=== PATIENT | male | born 1960 | race Caucasian/White ===

== ENCOUNTER → 2017-09-18 16:49 | Outpatient (CLI) | payer OTHER, SELFPAY ==
[2017-09-18 16:55] LABS: Bacteria 0 SEEN /hpf (None Seen); Mucous, Urine 0 SEEN /hpf (<or=2+); Red Blood Cells-Urine 0 SEEN /hpf (0-5); Squamous Epithelial Cells - UA 0 SEEN /hpf (0-5)
[2017-09-18 17:56] LABS: Color, Urine Yellow (Yellow); Glucose, Dipstick Normal (Normal); Ketone-Dipstick Negative (Negative); Leukocyte Esterase-Dipstick Negative /ul (Negative); Nitrite-Dipstick Negative (Negative); Occult Blood-Urine Negative /ul (Negative); Protein-Dipstick Negative (Negative); Urine Bilirubin Dipstick Negative (Negative); Urine Clarity Clear (Clear); Urine Urobilinogen Normal (Normal)
[2017-09-18 18:08] LABS: White Blood Cells 0-5 SEEN /hpf (0-5)
[2017-09-18 18:24] LABS: ALB/GLOB Ratio 1.1 RATIO (0.9-2.4); AST(SGOT) 26 U/L (15-37); Alanine Aminotransfer ALT/SGPT 36 U/L (16-61); Albumin, Serum 3.9 g/dL (3.2-5.0); Alkaline Phosphatase 94 U/L (45-117); Anion Gap 7 (5-15); BUN 20 mg/dL (7-18); BUN/Creat Ratio 15.6 RATIO (10-20); Calcium,Total 8.9 mg/dL (8.5-10.1); Chloride 109 mmol/L (98-107); Cholesterol 118 mg/dL (200); Creatinine, Serum 1.28 mg/dL (0.70-1.30); EST Glomerular Filtration Rate 62 mL/min (>60); Est Glom Filt Rate - Afr Amer 75 mL/min (>60); Globulin 3.5 g/dL (2.2-4.2); Glucose 87 mg/dL (74-106); High Density Lipoprotein 38 mg/dL; Potassium 4.3 mmol/L (3.5-5.1); Protein, Total 7.4 g/dL (6.4-8.2); Sodium Level 143 mmol/L (136-145); Thyroid Stim Hormone (TSH) 1.04 uIU/mL (0.358-3.74); Triglycerides 138 mg/dL; Uric Acid 8.5 mg/dL (3.5-7.2); Very Low Density Lipoprotein 28 mg/dL (5-40)
[2017-09-18 18:25] LABS: Absolute Lymphocyte Count 1.72 X10^3/ul (0.83-4.51); Absolute Neutrophil Count 6.8 X10^3/uL (2.0-7.7); Basophil# 0.06 X10^3/uL; Basophil% 0.6 % (0-1); Eosinophil# 0.15 X10^3/uL; Eosinophils% 1.5 % (0-5); Hematocrit 39.2 % (40-54); Hemoglobin 13.1 g/dl (13.0-16.5); Lymphocyte # 1.72 X10^3/ul (4.0); Lymphocyte % 17.8 % (19-41); Mean Corp Hgb Conc 33.4 g/gl (32-36); Mean Corpuscular Hgb 30.1 pg (27.0-32.0); Mean Corpuscular Volume 90.1 fL (80-94); Mean Platelet Vol. 12.1 fl (6.2-12.0); Monocyte# 0.98 X10^3/uL; Monocyte% 10.1 % (0-10); Neutrophil # 6.75 X10^3/uL (2.7-7.7); Neutrophil % 69.7 % (47-70); Platelet Count 174 K/mm3 (150-450); RBC Distribution Width CV 13.4 % (11.6-14.6); RBC Distribution Width SD 43.3 fl (35.1-43.9); Red Blood Count 4.35 M/mm3 (4.6-6.2); White Blood Count 9.7 K/mm3 (4.4-11.0)
[2017-09-18 18:35] LABS: POSITIVE COUNT NO; POSITIVE DIFFERENTIAL NO; POSITIVE MORPHOLOGY NO
== END ==
PROVIDERS: Family Provider Family Medicine; PCP Family Medicine; Visit Provider Family Medicine
DX: I10 Essential (primary) hypertension (principal); E78.5 Hyperlipidemia, unspecified; M10.9 Gout, unspecified
CPT/HCPCS: 36415; 80053; 80061; 81001; 83735; 84443; 84550; 85025

== ENCOUNTER → 2017-10-02 09:39 | Outpatient (CLI) | payer OTHER, SELFPAY ==
--- NOTE | 2017-10-02 09:41 | CDU_ITS ---
Reason For Study: Carotid stenosis Rt. Velocities/BP Lt. Velocities/BP Prox CCA 104.0/17.6 cm/sec. Prox CCA 96.2/17.0 cm/sec. Mid CCA 93.2/17.6 cm/sec. Mid CCA 98.5/19.3 cm/sec. Dist CCA 91.5/14.7 cm/sec. Dist CCA 75.0/19.3 cm/sec. Prox ICA 63.5/14.0 cm/sec. Prox ICA 41.4/11.4 cm/sec. Mid ICA 49.9/16.3 cm/sec. Mid ICA 65.2/15.9 cm/sec. Dist ICA 70.9/18.1 cm/sec. Dist ICA 77.8/19.8 cm/sec. Rt. ICA/CCA = .76. Lt. ICA/CCA = .79. Prox ECA 122.0/14.7 cm/sec. Prox ECA 132.0/21.2 cm/sec. Rt. Vert. 35.4/6.7 cm/sec. Lt. Vert. 42.0/9.8 cm/sec. Right Extracranial There is homogeneous, smooth atherosclerotic plaque noted in the right common carotid artery. There is intimal thickening but no significant atherosclerotic plaque noted in the right internal carotid artery. There is heterogeneous, smooth atherosclerotic plaque noted in the right external carotid artery. Antegrade flow is noted in the right vertebral artery. Left Extracranial There is homogeneous, smooth atherosclerotic plaque noted in the left common carotid artery. There is intimal thickening but no significant atherosclerotic plaque noted in the left internal carotid artery. There is intimal thickening but no significant atherosclerotic plaque noted in the left external carotid artery. Antegrade flow is noted in the left vertebral artery. Procedure Carotid Duplex [id number]. Exam performed in department. Interpretation Summary No significant atherosclerotic plaque or stenosis noted in the internal carotid arteries bilaterally. Flow within the vertebral arteries is antegrade bilaterally. Ordering Physician: Priyank Azul Referring Physician: Priyank Azul Performed By: Bonnie Hannah RVT
== END ==
PROVIDERS: Family Provider Family Medicine; PCP Family Medicine; Visit Provider Family Medicine
DX: I65.23 Occlusion and stenosis of bilateral carotid arteries (principal)
CPT/HCPCS: 93880

== ENCOUNTER → 2017-10-09 16:28 | Outpatient (CLI) | payer OTHER, SELFPAY ==
--- NOTE | 2017-10-09 16:31 | RAD_ITS ---
STUDY: X-RAY - LEFT KNEE REASON FOR EXAM: Male, 57 years old. Bilateral knee pain TECHNIQUE: 3 weight bearing view(s) of the knee. COMPARISON: None. FINDINGS: Normal visualized distal femur. Normal visualized proximal tibia and fibula. Normal proximal tibiofibular articulation. Mild spurring of tibial spine and femoral notch. There is mild to moderate degenerative arthrosis of the medial femorotibial compartment with moderate joint space narrowing. Normal lateral femorotibial compartment. There is mild to moderate degenerative arthrosis of the patellofemoral articulation. There is no demonstrated joint effusion, the suprapatella joint space however is indistinct and slightly hazy.. The soft tissue structures are unremarkable. RAD/Knee 3 Views IMPRESSION: Moderate degenerative changes involving the medial femoral tibial and patellofemoral compartment. No overt effusion seen, there is however fat infiltration in the suprapatellar joint space which may be indirect sign of small effusion. Electronically Signed: Dayami Sears MD at 7:17 EDT , Service support ,
--- NOTE | 2017-10-09 16:31 | RAD_ITS ---
STUDY: X-RAY - RIGHT KNEE REASON FOR EXAM: Male, 57 years old. Bilateral knee pain TECHNIQUE: 3 weight bearing view(s) of the knee. COMPARISON: None. FINDINGS: Normal visualized distal femur. Normal visualized proximal tibia and fibula. Normal proximal tibiofibular articulation. Mild spurring involving the femoral notch and tibial spine. There is moderate degenerative arthrosis of the medial femorotibial compartment with moderate joint space narrowing. Normal lateral femorotibial compartment. There is moderate degenerative arthrosis of the patellofemoral articulation. There is no demonstrated joint effusion. The soft tissue structures are unremarkable. 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 No effusion. Electronically Signed: Dayami Sears MD at 7:14 EDT , Service support ,
== END ==
LOC: MTRAD 16:30
PROVIDERS: Family Provider Family Medicine; PCP Family Medicine; Visit Provider Family Medicine
DX: M25.561 Pain in right knee (principal); M25.562 Pain in left knee
CPT/HCPCS: 73562

== ENCOUNTER → 2017-10-12 16:59 | Outpatient (CLI) | payer OTHER, SELFPAY ==
[2017-10-12 19:12] LABS: 24 Hour Urine Protein 212.8 mg/24HR (<150 MG/24HR); 24HR. UA Prot. Total Volume 1600 mL; 24HR. Urine Creatinine 2.62 g/24 HR (0.90-2.10); Urine Protein (24 Hour) 13.3 mg/dL (<11.9)
[2017-10-14 05:07] LABS: Uric Acid, Ur 34.4 mg/dL (Not Estab.)
[2017-10-14 10:26] LABS: Uric Acid, 24Ur 550.4 mg/24 hr (250.0-750.0)
== END ==
PROVIDERS: Family Provider Family Medicine; PCP Family Medicine; Visit Provider Family Medicine
DX: M10.9 Gout, unspecified (principal)
CPT/HCPCS: 81050; 82570; 84156; 84560

== ENCOUNTER → 2017-12-10 13:43 | Outpatient (CLI) | payer OTHER, SELFPAY ==
--- NOTE | 2017-12-10 13:44 | ECHOD_ITS ---
Reason For Study: Aortic valve replacement Procedure This was a 2D Doppler, Color Flow transthoracic echocardiogram. The exam was of fair technical quality due to body habitus. The study was technically difficult. Exam performed in department. Left Ventricle Normal LV size. Left ventricular systolic function is normal. The estimated ejection fraction is 60 %. There is evidence of diastolic dysfunction. No regional wall motion abnormalities noted. Right Ventricle Normal RV size. Normal systolic function. Atria The left atrium is mildly enlarged. Normal right atrium. No doppler evidence for ASD. Mitral Valve There is no mitral annular calcification. Normal mitral valve. Trivial mitral valve insufficiency. Tricuspid Valve Normal tricuspid valve. Mild tricuspid valve insufficiency. Right ventricular systolic pressure estimated to be 51 mmHg. Aortic Valve Stable appearing bioprosthetic aortic valve apparatus. Pulmonic Valve The pulmonic valve is not well visualized. Great Vessels Normal sized aortic root. Pericardium/Pleural No pericardial effusion. MMode/2D Measurements & Calculations LVIDd: 4.2 cm IVSd: 1.3 cm LVOT diam: 2.2 cm LVIDs: 2.7 cm LVPWd: 1.3 cm LVOT area: 3.7 cm2 FS: 35.9 % Ao root diam: 3.5 cm LAV(MOD-bp): 59.8 ml LA A4 area: 21.6 cm2 LA dimension: 4.3 cm LAV(MOD-bp) Indexed: 23.5 ml/m2 LAV(MOD-sp2): 59.2 ml LAV(MOD-sp4): 55.8 ml RA A4 area: 19.1 cm2 Doppler Measurements & Calculations MV E max gaurav: 114.9 cm/sec Lat Peak E' Gaurav: 11.1 cm/sec Med Peak E' Gaurav: 6.5 cm/sec MV A max gaurav: 105.0 cm/sec E/E' lat: 10.4 E/E' med: 17.6 MV E/A: 1.1 Ao V2 max: 264.5 cm/sec LV V1 max: 147.8 cm/sec SV(LVOT): 118.8 ml Ao max P.0 mmHg LV V1 max P.7 mmHg Ao V2 mean: 169.9 cm/sec LV V1 mean P.6 mmHg Ao mean P.4 mmHg LV V1 mean: 100.7 cm/sec Ao V2 VTI: 51.2 cm LV V1 VTI: 32.1 cm HUBERT(I,D): 2.3 cm2 HUBERT(V,D): 2.1 cm2 PA V2 max: 234.4 cm/sec TR max gaurav: 341.4 cm/sec PA V2 mean: 148.9 cm/sec TR max P.6 mmHg PA V2 VTI: 49.4 cm Interpretation Summary The study was technically difficult. Left ventricular systolic function is normal. The estimated ejection fraction is 60 %. The left atrium is mildly enlarged. Trivial mitral valve insufficiency. Mild tricuspid valve insufficiency. Stable appearing bioprosthetic aortic valve apparatus. Right ventricular systolic pressure estimated to be 51 mmHg. There is evidence of diastolic dysfunction. Ordering Physician: Ras Meadows Referring Physician: Priyank Azul Performed By: Lexie Doe RDCS
== END ==
LOC: CVS 13:43
PROVIDERS: Family Provider Family Medicine; PCP Family Medicine; Visit Provider Internal Medicine Cardiovascular Disease
DX: Z95.3 Presence of xenogenic heart valve (principal)
CPT/HCPCS: 93306

== ENCOUNTER → 2017-12-30 13:24 | Outpatient (CLI) | payer OTHER, SELFPAY ==
--- NOTE | 2017-12-30 13:26 | CT_ITS ---
STUDY: CT CHEST WITH CONTRAST REASON FOR EXAM: Male, 57 years old. Status post thoracic aortic aneurysm repair, follow-up RADIATION DOSAGE (If Supplied By Facility): CTDIvol = ( 13.93 ) mGy, DLP = ( 750.74 ) mGycm TECHNIQUE: Transaxial imaging was performed following intravenous administration of 100 ml of Isovue 300 contrast material. Multiplanar coronal and sagittal images were reformatted. Individualized dose optimization techniques were used for this CT. COMPARISON: None. FINDINGS: The lungs are normal. There is no demonstrated pleural abnormality. Normal heart and pericardium. Sternotomy wires are noted. There is prosthetic aortic valve. Normal mediastinum. Normal hilar regions. Normal enhanced pulmonary arteries. Therer operative changes the ascending thoracic aorta. The thoracic aorta is normal in caliber without evidence of aneurysm or dissection. There are multi-level degenerative changes of the thoracic spine. There is no demonstrated abnormality of the visualized upper abdomen. CT/Chest WITH Contrast IMPRESSION: 1. No thoracic aortic aneurysm or dissection. Operative changes, as above. Electronically Signed: Galo Reyes MD at 19:35 EDT , Service support ,
== END ==
PROVIDERS: Family Provider Family Medicine; PCP Family Medicine; Visit Provider Internal Medicine Cardiovascular Disease
DX: I71.2 Thoracic aortic aneurysm, without rupture (principal); I10 Essential (primary) hypertension; I27.21 Secondary pulmonary arterial hypertension; Z95.3 Presence of xenogenic heart valve
CPT/HCPCS: 71260; Q9967; A4216

== ENCOUNTER → 2018-02-08 16:14 | Outpatient (CLI) | payer OTHER, SELFPAY ==
[2018-02-08 17:53] LABS: Absolute Lymphocyte Count 1.59 X10^3/ul (0.83-4.51); Absolute Neutrophil Count 6.4 X10^3/uL (2.0-7.7); Basophil# 0.06 X10^3/uL; Basophil% 0.7 % (0-1); Eosinophil# 0.17 X10^3/uL; Eosinophils% 1.9 % (0-5); Hematocrit 38.2 % (40-54); Hemoglobin 12.5 g/dl (13.0-16.5); Lymphocyte # 1.59 X10^3/ul (4.0); Lymphocyte % 17.7 % (19-41); Mean Corp Hgb Conc 32.7 g/gl (32-36); Mean Corpuscular Hgb 29.6 pg (27.0-32.0); Mean Corpuscular Volume 90.3 fL (80-94); Mean Platelet Vol. 11.8 fl (6.2-12.0); Monocyte# 0.74 X10^3/uL; Monocyte% 8.2 % (0-10); Neutrophil # 6.38 X10^3/uL (2.7-7.7); Neutrophil % 71.2 % (47-70); Platelet Count 160 K/mm3 (150-450); RBC Distribution Width CV 13.6 % (11.6-14.6); RBC Distribution Width SD 44.4 fl (35.1-43.9); Red Blood Count 4.23 M/mm3 (4.6-6.2)
[2018-02-08 17:54] LABS: POSITIVE DIFFERENTIAL NO
[2018-02-08 17:55] LABS: POSITIVE COUNT NO; POSITIVE MORPHOLOGY NO
[2018-02-08 18:05] LABS: AST(SGOT) 25 U/L (15-37); Alanine Aminotransfer ALT/SGPT 38 U/L (16-61); Albumin, Serum 3.7 g/dL (3.2-5.0); Alkaline Phosphatase 101 U/L (45-117); BUN 20 mg/dL (7-18); BUN/Creat Ratio 16.7 RATIO (10-20); Calcium,Total 8.9 mg/dL (8.5-10.1); Chloride 108 mmol/L (98-107); Cholesterol 139 mg/dL (200); EST Glomerular Filtration Rate 66 mL/min (>60); Est Glom Filt Rate - Afr Amer 80 mL/min (>60); Globulin 3.6 g/dL (2.2-4.2); Glucose 80 mg/dL (74-106); Potassium 4.2 mmol/L (3.5-5.1); Protein, Total 7.3 g/dL (6.4-8.2); Sodium Level 140 mmol/L (136-145); Triglycerides 146 mg/dL; Uric Acid 8.3 mg/dL (3.5-7.2)
[2018-02-08 18:06] LABS: Anion Gap 9 (5-15); High Density Lipoprotein 40 mg/dL; Very Low Density Lipoprotein 29 mg/dL (5-40)
[2018-02-09 09:11] LABS: Vitamin B12 452 pg/mL (211-911)
[2018-02-09 09:32] LABS: Ferritin 102 ng/mL (26-388); Iron 84 ug/dL (65-175); Iron Binding Capacity,Total 281 ug/dL (250-450); PERCENT IRON SATURATION 29.9 % (15.0-55.0)
== END ==
LOC: LAB 16:14 → MFPLAB 16:21
PROVIDERS: Family Provider Family Medicine; PCP Family Medicine; Visit Provider Family Medicine
DX: I10 Essential (primary) hypertension (principal); D64.9 Anemia, unspecified; M10.9 Gout, unspecified
CPT/HCPCS: 36415; 80053; 80061; 82607; 82728; 82746; 83540; 83550; 84550; 85025

== ENCOUNTER 2018-03-18 10:35 | Day surgery (SDC) | payer OTHER, SELFPAY ==
--- NOTE | 2018-03-18 | IMM_PTH ---
PATIENT: ROSAS HAGEN LOC: EN U#:[id number] AGE/SX: 57/M ROOM: RE03/18/[address]: Dr. Dmitri Baltazar MD : 1960 BED: DIS: 03/18/2018 SPEC #: [id number] RECD: 03/19/18 10:42 STATUS: KAREN REQ #: [id number] MARIE: 03/18/18 00:[address]: Dmitri Baltazar DEPT: IMMUNOHISTOCHEMISTRY RECD BY: Eleanor Thomas ENTERED: 03/19/18 10:43 SP TYPE: IMMUNO OTHR DR: Dr. Priyank Azul MD Tissues: Stomach, NOS Procedures: H Pylori (initial) PHYSICIAN & INSTITUTION [place] [id number] SPECIMEN INFORMATION: Tissue Source: Antrum biopsy Clinical Info: Anemia Specimen Number: [id number] CPT code: 55688 METHODOLOGY: Deparaffinized sections of prefer/formalin-fixed tissue or PAP/DQ stained slides are incubated with monoclonal/polyclonal antibodies/oligonucleotide probes. Localization is made via biotin free immunoperoxidase method. Appropriate controls are performed and reacted as expected. Results on target cell population are indicated in the following table: RESULTS: ANTIBODY / CLONE RESULT H Pylori (polyclonal) positive These tests were developed and their performance characteristics determined by [facility]. They may not have been cleared or approved by the [place]. Food and Drug Administration. The FDA has determined that such clearance or approval is not necessary. INTERPRETATION: Antrum, biopsy: Positive for numerous Helicobacter pylori organisms. SJ:jaswant 03/22/18
--- NOTE | 2018-03-18 | GASB_PTH ---
PATIENT: ROSAS HAGEN LOC: EN U#:[id number] AGE/SX: 57/M ROOM: RE03/18/[address]: Dr. Dmitri Baltazar MD : 1960 BED: DIS: 03/18/2018 SPEC #: [id number] RECD: 03/18/18 14:39 STATUS: KAREN REMadan #: [id number] MARIE: 03/18/18 00:[address]: Dmitri Baltazar DEPT: SURGICAL PATHOLOGY RECD BY: Gabo Isidro ENTERED: 03/18/18 14:39 SP TYPE: Gastric Bx OTHR DR: Dr. Priyank Azul MD Tissues: Gastric mucous membrane Procedures: Surgery Specimen Level IV HEADER OPERATION: Colonoscopy, EGD ([facility]) PRE-OP DIAGNOSIS: Anemia TISSUE SUBMITTED: Antrum biopsy for H. pylori and path MICROSCOPIC DIAGNOSIS Antrum biopsy: Chronic active gastritis. SJ:jaswant 10/26/18 COMMENT The results of immunohistochemistry for Helicobacter pylori will be reported separately ([id number]). MICROSCOPIC DESCRIPTION Slides are reviewed. GROSS DESCRIPTION Received in fixative is one container labeled with the patient's name and designated antral biopsy for H. pylori. The specimen consists of one irregular fragment of light diaz soft tissue that measures 0.4 x 0.4 x 0.1 cm. The specimen is totally submitted in one cassette. / SJ:rg 03/18/18 TC:2 CPT: 09167
[2018-03-18 10:59] VITALS: BP 149/58; PULSE 37; RESP 16; TEMP 37.1; O2SAT 98; BMI 42.3
[2018-03-18 12:25] VITALS: BP 149/58; BP 95/55; PULSE 65; RESP 16; TEMP 36.6; O2SAT 95
[2018-03-18 12:30] VITALS: BP 104/60; BP 149/58; PULSE 71; RESP 16; O2SAT 96
--- NOTE | 2018-03-18 12:30 | OP.ENDO_ITS ---
Patient Name: Yeison Zavala Procedure Date: 03/18/2018 11:53 AM Date of : 1960 Age: 57 Procedure: Upper GI endoscopy Indications: Iron deficiency anemia Providers: Dmitri Baltazar MD Referring MD: Dmitri Baltazar MD Medicines: See the Anesthesia note for documentation of the administered medications Complications: No immediate complications. Procedure: Pre-Anesthesia Assessment: - Prior to the procedure, a History and Physical was performed, and patient medications and allergies were reviewed. The patient's tolerance of previous anesthesia was also reviewed. The risks and benefits of the procedure and the sedation options and risks were discussed with the patient. All questions were answered, and informed consent was obtained. Prior Anticoagulants: The patient has taken no previous anticoagulant or antiplatelet agents. ASA Grade Assessment: III - A patient with severe systemic disease. After reviewing the risks and benefits, the patient was deemed in satisfactory condition to undergo the procedure. After obtaining informed consent, the endoscope was passed under direct vision. Throughout the procedure, the patient's blood pressure, pulse, and oxygen saturations were monitored continuously. The gastroscope was introduced through the mouth, and advanced to the second part of duodenum. The upper GI endoscopy was accomplished without difficulty. The patient tolerated the procedure well. Scope In: 12:05:46 PM Scope Out: 12:09:36 PM Total Procedure Duration Time 0 hours 3 minutes 50 seconds Findings: A small hiatal hernia was present. The Z-line was regular and was found 45 cm from the incisors. Diffuse moderate inflammation characterized by erosions was found in the gastric antrum. Biopsies were taken with a cold forceps for histology. This might explain chronic blood loss although there was not evidence for bleeding at the time of the exam. The examined duodenum was normal. Impression: - Small hiatal hernia. - Z-line regular, 45 cm from the incisors. - Gastritis. Biopsied. - Normal examined duodenum. Recommendation: - Discharge patient to home. - Resume previous diet. - Telephone my office for pathology results in 1 week. - Continue present medications. Procedure Code(s): --- Professional --- 95531, Esophagogastroduodenoscopy, flexible, transoral; with biopsy, single or multiple Diagnosis Code(s): --- Professional --- K44.9, Diaphragmatic hernia without obstruction or gangrene K29.70, Gastritis, unspecified, without bleeding D50.9, Iron deficiency anemia, unspecified CPT copyright 2017 [employer]. All rights reserved. The codes documented in this report are preliminary and upon medical coder review may be revised to meet current compliance requirements. Dmitri Baltazar MD 03/18/2018 12:29:53 PM This report has been signed electronically. Number of Addenda: 0 Note Initiated On: 03/18/2018 11:53 AM
--- NOTE | 2018-03-18 12:33 | OP.ENDO_ITS ---
Patient Name: Yeison Zavala Procedure Date: 03/18/2018 12:11 PM Date of : 1960 Age: 57 Procedure: Colonoscopy Indications: Iron deficiency anemia Providers: Dmitri Baltazar MD Referring MD: Dmitri Baltazar MD Medicines: See the Anesthesia note for documentation of the administered medications Patient Profile: Last Colonoscopy: none. The patient's first colonoscopy is today. Complications: No immediate complications. Procedure: Pre-Anesthesia Assessment: - Prior to the procedure, a History and Physical was performed, and patient medications and allergies were reviewed. The patient's tolerance of previous anesthesia was also reviewed. The risks and benefits of the procedure and the sedation options and risks were discussed with the patient. All questions were answered, and informed consent was obtained. Prior Anticoagulants: The patient has taken no previous anticoagulant or antiplatelet agents. ASA Grade Assessment: III - A patient with severe systemic disease. After reviewing the risks and benefits, the patient was deemed in satisfactory condition to undergo the procedure. After I obtained informed consent, the scope was passed under direct vision. Throughout the procedure, the patient's blood pressure, pulse, and oxygen saturations were monitored continuously. The colonoscope was introduced through the anus and advanced to the cecum, identified by appendiceal orifice and ileocecal valve. The colonoscopy was performed without difficulty. The patient tolerated the procedure well. The quality of the bowel preparation was good. The ileocecal valve was photographed. Scope In: 12:12:30 PM Scope Withdrawal Time 0 hours 6 minutes 26 seconds Scope Out: 12:21:58 PM Total Procedure Duration Time 0 hours 9 minutes 28 seconds Findings: The digital rectal exam findings include internal hemorrhoids that prolapse with straining, but spontaneously regress to the resting position (Grade II). Pertinent negatives include normal prostate (size, shape, and consistency). A few diverticula were found in the sigmoid colon. The exam was otherwise without abnormality. Impression: - Internal hemorrhoids that prolapse with straining, but spontaneously regress to the resting position (Grade II) found on digital rectal exam. - Diverticulosis in the sigmoid colon. - The examination was otherwise normal. - No specimens collected. Recommendation: - Discharge patient to home. - Resume previous diet. - Continue present medications. - Repeat colonoscopy in 5 years for screening purposes. Procedure Code(s): --- Professional --- 22268, Colonoscopy, flexible; diagnostic, including collection of specimen(s) by brushing or washing, when performed (separate procedure) Diagnosis Code(s): --- Professional --- K64.1, Second degree hemorrhoids D50.9, Iron deficiency anemia, unspecified K57.30, Diverticulosis of large intestine without perforation or abscess without bleeding CPT copyright 2017 [employer]. All rights reserved. The codes documented in this report are preliminary and upon certified professional coder review may be revised to meet current compliance requirements. Dmitri Baltazar MD 03/18/2018 12:32:37 PM This report has been signed electronically. Number of Addenda: 0 Note Initiated On: 03/18/2018 12:11 PM
[2018-03-18 12:35] VITALS: BP 114/66; BP 149/58; PULSE 70; RESP 16; O2SAT 97
[2018-03-18 12:40] VITALS: BP 107/69; BP 149/58; PULSE 71; RESP 16; O2SAT 98
[2018-03-18 12:55] VITALS: BP 149/58
== END 2018-03-18 13:05 | disposition home or self-care (01) ==
LOC: EN 10:35 → AC 10:36
PROVIDERS: Family Provider Family Medicine; PCP Family Medicine; Referring Provider Surgery; Visit Provider Surgery
PROC: 0DJD8ZZ Inspection of Lower Intestinal Tract, Via Natural or Artificial Opening Endoscopic (ICD-10-PCS; CPT 45378; principal; 2018-03-18 11:40)
DX: K29.50 Unspecified chronic gastritis without bleeding (principal); D50.9 Iron deficiency anemia, unspecified; K64.0 First degree hemorrhoids; K57.30 Diverticulosis of large intestine without perforation or abscess without bleeding; K44.9 Diaphragmatic hernia without obstruction or gangrene; M10.9 Gout, unspecified; E78.5 Hyperlipidemia, unspecified; I10 Essential (primary) hypertension; M19.90 Unspecified osteoarthritis, unspecified site; J44.9 Chronic obstructive pulmonary disease, unspecified; Z95.4 Presence of other heart-valve replacement; E66.01 Morbid (severe) obesity due to excess calories; Z68.41 Body mass index [BMI] 40.0-44.9, adult; Z87.891 Personal history of nicotine dependence; Z80.0 Family history of malignant neoplasm of digestive organs; Z79.82 Long term (current) use of aspirin; Z79.899 Other long term (current) drug therapy
CPT/HCPCS: 43239; 45378; 88305; 88342; J7120

== ENCOUNTER → 2018-05-08 07:57 | Outpatient (CLI) | payer OTHER, SELFPAY ==
[2018-05-08 10:34] LABS: Ferritin 96 ng/mL (26-388); Iron Binding Capacity,Total 282 ug/dL (250-450)
[2018-05-10 10:13] LABS: Vitamin B12 524 pg/mL (211-911)
--- OUTSIDE RECORDS SUMMARY | 2018-08-11 08:31 | XMS RPT_ITS ---
:1960 Author Organization OHIP Support Name Relationship Address Phone [place] HAGEN Unavailable [address] + [place] [address] [employer] Unavailable [address] + [facility] [place] [place] [address] [place], [place] Unavailable [address] + [place] [address] [employer] Unavailable [address] + [facility] [place] [place] [address] [place], [place] Unavailable [address] + [place] [address] [employer] Unavailable [address] + [place] [address] [place], [place] Unavailable [address] + [place] [address] [employer] Unavailable [address] + [facility] [place] [place] [address] [place], [place] Unavailable [address] + [place] [address] [employer] Unavailable [address] + [facility] [place] [place] [address] [place], [place]available [address] + [place] [address] [employer] Unavailable [address] + [place] [address] [place], [place] Unavailable [address] + [place] [address] [employer] Unavailable [address] + [place] [address] [place], [place] Unavailable [address] + [place] [address] [employer] Unavailable [address] + [place] [address] [place], [place] Unavailable [address] + [place] [address] [employer] Unavailable [address] + [place], [place] [id number] [place] [address] + [place] [address] [employer] Unavailable [address] + [address] Unavailable [address] + [place] [address] [employer] Unavailable [address] + [place] [address] [place], [place] Unavailable [address] + [place] [address] [employer] Unavailable [address] + [address] Unavailable [address] + [place], [place] [address] [employer] Unavailable [address] + [address] Unavailable [address] + [place] [address] [employer] Unavailable [address] + [place] [address] [employer] Unavailable [address] + [place] [address] Care Team Providers Name Role Phone Priyank Azul Attending Unavailable Priyank Azul Referring Unavailable Priyank Azul Primary Care Unavailable Priyank Azul Attending Unavailable Priyank Azul Primary Care Unavailable Priyank Azul Attending Unavailable Priyank Azul Primary Care Unavailable Priyank Azul Attending Unavailable Priyank Azul Referring Unavailable Priyank Azul Primary Care Unavailable Priyank Azul Attending Unavailable Priyank Azul Referring Unavailable Priyank Azul Primary Care Unavailable Priyank Azul Attending Unavailable Priyank Azul Primary Care Unavailable Cuca Mcfadden Attending Unavailable [place] Attending Unavailable Priyank Azul Referring Unavailable Priyank Azul Primary Care Unavailable [place] Attending Unavailable [place] Referring Unavailable Priyank Azul Primary Care Unavailable Abdiel, Ras Attending Unavailable [place] Referring Unavailable Priyank Azul Primary Care Unavailable Abdiel, Ras Attending Unavailable Abdiel, Ras Referring Unavailable ThonginPriyank doe Attending Unavailable SchinPriyank doe Referring Unavailable Priyank Azul Primary Care Unavailable Cebunora, Dmitri Attending Unavailable SchinPriyank doe Referring Unavailable Cebul, Dmirti Attending Unavailable SchinPriyank doe Primary Care Unavailable Cebul, Dmitri Referring Unavailable Cebul, Dmitri Attending Unavailable PROBLEMS PROBLEMS DATE TYPE CONDITION / CODE ATTENDING STATUS SOURCE 04/01/2018 Unknown D50.9 - Iron Cebul, Dmitri Active [facility] deficiency anemia, Community unspecified / Hospital D50.9(ICD-10) Repository 04/01/2018 Unknown K57.30 - Cebul, Dmitri Active [facility] Diverticulosis of [facility] large intestine Hospital without perforation Repository or abscess without bleeding / K57.30(ICD-10) 04/01/2018 Unknown K64.1 - Second Cebul, Dmitri Active [facility] degree hemorrhoids / Community K64.1(ICD-10) Hospital Repository 04/01/2018 Unknown K44.9 - Cebul, Dmitri Active [facility] Diaphragmatic hernia Community without obstruction Hospital or gangrene / Repository K44.9(ICD-10) 04/01/2018 Unknown K29.70 - Gastritis, Cebul, Dmitri Active [facility] unspecified, without Community bleeding / Hospital K29.70(ICD-10) Repository 02/22/2018 Unknown D64.9 - Anemia, Cebul, Dmitri Active [facility] unspecified / Community D64.9(ICD-10) Hospital Repository 02/08/2018 Unknown M10.9 - Gout, Schinner, Priyank Active [facility] unspecified / E Community M10.9(ICD-10) Hospital Repository 02/08/2018 Unknown I10 - Essential Schinner, Priyank Active [facility] (primary) E Community hypertension / Hospital I10(ICD-10) Repository 02/08/2018 Unknown 401.9 - Unspecified Schinner, Priyank Active [facility] essential E Community hypertension / Hospital 401.9(ICD-9) Repository 02/08/2018 Unknown 274.9 - Gout, Schinner, Priyank Active [facility] unspecified / E Community 274.9(ICD-9) Hospital Repository 11/26/2017 Unknown I71.2 - Thoracic [place] aortic aneurysm, Community without rupture / Hospital I71.2(ICD-10) Repository 11/26/2017 Unknown I35.0 - Nonrheumatic [place] aortic (valve) Community stenosis / Hospital I35.0(ICD-10) Repository 11/26/2017 Unknown Z95.3 - Presence of [place] xenogenic heart Community valve / Hospital Z95.3(ICD-10) Repository 10/09/2017 Unknown M25.561 [facility] M25.561(ICD-10) Hospital Repository 10/09/2017 Unknown M25.562 [facility] E [facility] M25.562(ICD-10) Hospital Repository 10/02/2017 Unknown I65.23 - Occlusion Priyank Azul and stenosis of E Community bilateral carotid Hospital arteries / Repository I65.23(ICD-10) 10/02/2017 Unknown R07.9 - Chest pain, Priyank Azul unspecified / E Community R07.9(ICD-10) Hospital Repository PROCEDURES PROCEDURES No Procedure Records FoundRESULTS RESULTS COMPREHENSIVE METABOLIC Collected: 06/02/2018 Status: F Source: [place] 4:03 PM [facility] REPOSITORY TYPE CODE TESTS RESULT OUT OF RANGE REFERENCE UNITS LAB L501.0100 74-106 mg/dL Normal GLU 83 Result Comment: Please note revised GLUCOSE reference range effective 2017. LAB L501.1000 7-18 mg/dL Normal BUN 18 LAB L501.1100 0.70-1.30 mg/dL Normal CREAT,SERUM 1.19 Result Comment: The validity of the calculated GFR AND GFRAA in patients over 70 years has not been determined. Clinical correlation is essential. LAB L501.1110 >60 mL/min Normal EST GFR 67 Result Comment: Non- GFR Calc LAB L501.1115 >60 mL/min Normal EST GFR - AA 81 Result Comment: GFR Calc LAB L501.1300 10-20 RATIO Normal BUN/CRE 15.1 LAB L501.1500 6.4-8.2 g/dL T Normal PROT 7.5 LAB L501.1800 3.2-5.0 g/dL Normal ALB 4.1 LAB L501.1950 2.2-4.2 g/dL Normal GLOB 3.4 LAB L501.2000 0.9-2.4 RATIO Normal A/G 1.2 LAB L501.2200 8.5-10.1 mg/dL CA Normal 9.3 LAB L501.4100 15-37 U/L Normal AST 18 LAB L501.4305 45-117 U/L Normal ALK P 106 LAB L501.4405 16-61 U/L Normal ALT 37 LAB L501.4600 0.20-1.00 mg/dL T Normal BILI 0.30 LAB L501.5300 136-145 mmol/L NA Normal 144 LAB L501.5600 3.5-5.1 mmol/L K Normal 4.1 LAB L501.5900 98-107 mmol/L CL Normal 106 LAB L501.6100 21.0-32.0 mmol/L Normal CO2 28.0 LAB L501.6200 5-15 Normal GAP 10 Performed By: #### L500.4050, L500.4100, L501.1400 #### [facility] [address] [place], [place], [address] LIPID PROFILE Collected: 06/02/2018 Status: F Source: [place] 4:03 PM [facility] REPOSITORY TYPE CODE TESTS RESULT OUT OF RANGE REFERENCE UNITS LAB L501.4900 200 mg/dL Normal CHOL 142 Result Comment: <200 mg/dL Desirable 200-240 mg/dL Borderline >240 mg/dL High Risk LAB L501.5000 mg/dL Normal TRIG 147 Result Comment: The drugs N-Acetylcysteine and Metamizole may falsely depress this assay. Serum Triglycerides Reference Interval Normal <150 mg/dL Borderline high 150 - 199 mg/dL High 200 - 499 mg/dL Very High > or = 500 mg/dL LAB L501.6400 mg/dL Normal HDL 43 Result Comment: The drugs N-Acetylcysteine and Metamizole may falsely depress this assay. Reference Range HDL <40 mg/dL Low HDL Cholesterol HDL >or= 60 mg/dL High HDL Cholesterol LAB L501.6500 0-130 mg/dL Normal LDL 70 LAB L501.6600 5-40 mg/dL Normal VLDL 29 Performed By: #### L500.4050, L500.4100, L501.1400 #### [facility] [address] [facility] [place], [place], [address] URIC ACID Collected: 06/02/2018 Status: F Source: [place] 4:03 PM [facility] REPOSITORY TYPE CODE TESTS RESULT OUT OF RANGE REFERENCE UNITS LAB L501.1400 3.5-7.2 mg/dL High URIC 8.9 Result Comment: The drugs N-Acetylcysteine and Metamizole may falsely depress this assay. Performed By: #### L500.4050, L500.4100, L501.1400 #### [facility] [address] [place], [place], [address] CBC W/DIFF, AUTOMATED Collected: 06/02/2018 Status: F Source: [place] 4:03 [facility] REPOSITORY TYPE CODE TESTS RESULT OUT OF RANGE REFERENCE UNITS LAB L100.1000 4.4-11.0 K/mm3 Normal WBC 10.0 LAB L100.1200 4.6-6.2 M/mm3 Normal RBC 4.63 LAB L100.1300 13.0-16.5 g/dl Normal HGB 13.7 LAB L100.1400 40-54 % Normal HCT 42.3 LAB L100.1500 80-94 fL Normal MCV 91.4 LAB L100.1600 27.0-32.0 pg Normal MCH 29.6 LAB L100.1700 32-36 g/gl Normal MCHC 32.4 LAB L100.1810 11.6-14.6 % Normal RDW CV 14.2 LAB L100.1820 35.1-43.9 fl High RDW SD 46.8 LAB L100.1900 150-450 K/mm3 Normal PLT 184 LAB L100.2000 6.2-12.0 fl Normal MPV 11.6 LAB L100.2100 47-70 % Normal NEUT% 68.4 LAB L100.2200 19-41 % Normal LY% 21.6 LAB L100.2300 0-10 % Normal MONO% 6.6 LAB L100.2400 0-5 % Normal EO% 1.9 LAB L100.2500 0-1 % Normal BASO% 0.8 LAB L100.2550 0.0-0.9 % Normal IM GRAN % 0.700 Result Comment: IG% - Immature Granulocytes (promyelocytes, myelocytes and metamyelocytes) > 1% indicates that a LEFT SHIFT is Present. LAB L100.2620 2.0-7.7 X10 3/uL Normal Absolute Neut 6.9 LAB L100.2720 0.83-4.51 X10 3/ul Normal Absolute Lymph 2.16 Performed By: #### L100.0100 #### [facility] [address] [place], [address] IRON BINDING Collected: 05/08/2018 Status: F Source: [place] 8:01 AM [facility] REPOSITORY Order Comment: Order Date: 02/09/18 Order Info: 2499-7 - TIBC Order Info: 2275-08 - [place] Order Info: 228-8 - FOLS Is Patient Taking Vitamins or Folic Acid Supplements? N TYPE CODE TESTS RESULT OUT OF RANGE REFERENCE UNITS LAB L503.6075 250-450 ug/dL Normal TIBC 282 Performed By: #### L503.6075 #### [facility] [address] [place], [address] FERRITIN Collected: 05/08/2018 Status: F Source: [place] 8:01 AM [facility] REPOSITORY Order Comment: Order Date: 02/09/18 Order Info: 2499-7 - TIBC Order Info: 2275-08 - [place] Order Info: 228-8 - FOLS Is Patient Taking Vitamins or Folic Acid Supplements? N TYPE CODE TESTS RESULT OUT OF RANGE REFERENCE UNITS LAB L503.6550 26-388 ng/mL Normal FERRITIN 96 Performed By: #### L503.6550 #### [facility] [address] [place], [address] FOLATES, (FOLIC ACID) Collected: 05/08/2018 Status: F Source: [place] 8:01 AM [facility] REPOSITORY Order Comment: Order Date: 02/09/18 Order Info: 2500-7 - TIBC Order Info: 2275-08 - [place] Order Info: 228-8 - FOLS Is Patient Taking Vitamins or Folic Acid Supplements? N TYPE CODE TESTS RESULT OUT OF RANGE REFERENCE UNITS LAB L506.0250 3.1-55.4 ng/mL Normal FOLATES 33.10 Performed By: #### L506.0250 #### [facility] [address] [place], [address] VITAMIN B12 Collected: 05/08/2018 Status: F Source: [place] 8:01 AM [facility] REPOSITORY Order Comment: Order Date: 02/09/18 Order Info: 2132-9 - B12 TYPE CODE TESTS RESULT OUT OF RANGE REFERENCE UNITS LAB L503.0105 211-911 pg/mL Normal Vitamin B12 524 Performed By: #### L503.0105 #### [facility] [address] [place], [address] OPERATIVE REPORT - Observed: 03/18/2018 Status: F Source: [facility] 12:33 PM [facility] REPOSITORY [facility] Medical Records Department [address] [place] [address] Operative Report - Endoscopy MR#: [id number] Acct: [id number] Name: RANDI HAGEN Rep #: [id number] : 1960 57 From: Dmitri Baltazar MD PCP: Priyank Azul MD Status: [facility] Patient Name: Randi Hagen Procedure Date: 03/18/2018 12:11 PM Date of : 1960 Age: 57 Procedure: Colonoscopy Indications: Iron deficiency anemia Providers: Dmitri Baltazar MD Referring MD: Dmitri Baltazar MD Medicines: See the Anesthesia note for documentation of the administered medications Patient Profile: Last Colonoscopy: none. The patient's first colonoscopy is today. Complications: No immediate complications. Procedure: Pre-Anesthesia Assessment: - Prior to the procedure, a History and Physical was performed, and patient medications and allergies were reviewed. The patient's tolerance of previous anesthesia was also reviewed. The risks and benefits of the procedure and the sedation options and risks were discussed with the patient. All questions were answered, and informed consent was obtained. Prior Anticoagulants: The patient has taken no previous anticoagulant or antiplatelet agents. ASA Grade Assessment: III - A patient with severe systemic disease. After reviewing the risks and benefits, the patient was deemed in satisfactory condition to undergo the procedure. After I obtained informed consent, the scope was passed under direct vision. Throughout the procedure, the patient's blood pressure, pulse, and oxygen saturations were monitored continuously. The colonoscope was introduced through the anus and advanced to the cecum, identified by appendiceal orifice and ileocecal valve. The colonoscopy was performed without difficulty. The patient tolerated the procedure well. The quality of the bowel preparation was good. The ileocecal valve was photographed. Scope In: 12:12:30 PM Scope Withdrawal Time 0 hours 6 minutes 26 seconds Scope Out: 12:21:58 PM Total Procedure Duration Time 0 hours 9 minutes 28 seconds Findings: The digital rectal exam findings include internal hemorrhoids that prolapse with straining, but spontaneously regress to the resting position (Grade II). Pertinent negatives include normal prostate (size, shape, and consistency). A few diverticula were found in the sigmoid colon. The exam was otherwise without abnormality. Impression: - Internal hemorrhoids that prolapse with straining, but spontaneously regress to the resting position (Grade II) found on digital rectal exam. - Diverticulosis in the sigmoid colon. - The examination was otherwise normal. - No specimens collected. Recommendation: - Discharge patient to home. - Resume previous diet. - Continue present medications. - Repeat colonoscopy in 5 years for screening purposes. Procedure Code(s): --- Professional --- 11259, Colonoscopy, flexible; diagnostic, including collection of specimen(s) by brushing or washing, when performed (separate procedure) Diagnosis Code(s): --- Professional --- K64.1, Second degree hemorrhoids D50.9, Iron deficiency anemia, unspecified K57.30, Diverticulosis of large intestine without perforation or abscess without bleeding CPT copyright 2017 [employer]. All rights reserved. The codes documented in this report are preliminary and upon show card writer review may be revised to meet current compliance requirements. Dmitri Baltazar MD 03/18/2018 12:32:37 PM This report has been signed electronically. Number of Addenda: 0 Note Initiated On: 03/18/2018 12:11 PM 03/18/18 1232 Date Dmitri Baltazar MD Cosigner Signature: Date (if indicated) CC: Priyank Azul MD; Dmitri Baltazar MD Date Dictated: 03/18/18 1211 Date Transcribed: Mechanic Foreman: JOSE Signed OPERATIVE REPORT - Observed: 03/18/2018 Status: F Source: [place] END[facility]COPY 12:30 PM [facility] REPOSITORY [facility] Medical Records Department [address] [place] [address] Operative Report - Endoscopy MR#: [id number] Acct: [id number] Name: RANDI HAGEN Rep #: [id number] : 1960 57 From: Dmitri Baltazar MD PCP: Priyank Azul MD Status: [facility] Patient Name: Randi Hagen Procedure Date: 03/18/2018 11:53 AM Date of : 1960 Age: 57 Procedure: Upper GI endoscopy Indications: Iron deficiency anemia Providers: Dmitri Baltazar MD Referring MD: Dmitri Baltazar MD Medicines: See the Anesthesia note for documentation of the administered medications Complications: No immediate complications. Procedure: Pre-Anesthesia Assessment: - Prior to the procedure, a History and Physical was performed, and patient medications and allergies were reviewed. The patient's tolerance of previous anesthesia was also reviewed. The risks and benefits of the procedure and the sedation options and risks were discussed with the patient. All questions were answered, and informed consent was obtained. Prior Anticoagulants: The patient has taken no previous anticoagulant or antiplatelet agents. ASA Grade Assessment: III - A patient with severe systemic disease. After reviewing the risks and benefits, the patient was deemed in satisfactory condition to undergo the procedure. After obtaining informed consent, the endoscope was passed under direct vision. Throughout the procedure, the patient's blood pressure, pulse, and oxygen saturations were monitored continuously. The gastroscope was introduced through the mouth, and advanced to the second part of duodenum. The upper GI endoscopy was accomplished without difficulty. The patient tolerated the procedure well. Scope In: 12:05:46 PM Scope Out: 12:09:36 PM Total Procedure Duration Time 0 hours 3 minutes 50 seconds Findings: A small hiatal hernia was present. The Z-line was regular and was found 45 cm from the incisors. Diffuse moderate inflammation characterized by erosions was found in the gastric antrum. Biopsies were taken with a cold forceps for histology. This might explain chronic blood loss although there was not evidence for bleeding at the time of the exam. The examined duodenum was normal. Impression: - Small hiatal hernia. - Z-line regular, 45 cm from the incisors. - Gastritis. Biopsied. - Normal examined duodenum. Recommendation: - Discharge patient to home. - Resume previous diet. - Telephone my office for pathology results in 1 week. - Continue present medications. Procedure Code(s): --- Professional --- 24481, Esophagogastroduodenoscopy, flexible, transoral; with biopsy, single or multiple Diagnosis Code(s): --- Professional --- K44.9, Diaphragmatic hernia without obstruction or gangrene K29.70, Gastritis, unspecified, without bleeding D50.9, Iron deficiency anemia, unspecified CPT copyright 2017 [employer]. All rights reserved. The codes documented in this report are preliminary and upon show card writer review may be revised to meet current compliance requirements. Dmitri Baltazar MD 03/18/2018 12:29:53 PM This report has been signed electronically. Number of Addenda: 0 Note Initiated On: 03/18/2018 11:53 AM 03/18/18 1230 Date Dmitri Baltazar MD Cosigner Signature: Date (if indicated) CC: Priyank zAul MD; Dmitri Baltazar MD Date Dictated: 03/18/18 1153 Date Transcribed: Mechanic Foreman: JOSE Signed GASTRIC BIOPSY Observed: 03/18/2018 Status: F Source: [place] 12:00 AM [facility] REPOSITORY Patient: RANDI HAGEN : 1960 (57/M) Acct Num: [id number] Phys: Dmitri Baltazar MD Unit Num: [id number] Loc: EN Specimen: [id number] Received: 03/18/181438 Spec Type: Gastric Bx TISSUES 1 TISSUES: Gastric mucous membrane COMMENT The results of immunohistochemistry for Helicobacter pylori will be reported separately ([id number]). GROSS DESCRIPTION Received in fixative is one container labeled with the patient's name and designated antral biopsy for H. pylori. The specimen consists of one irregular fragment of light diaz soft tissue that measures 0.4 x 0.4 x 0.1 cm. The specimen is totally submitted in one cassette. / VLADIMIR:jaswant 03/18/18 TC:2 CPT: 37705 HEADER OPERATION: Colonoscopy, EGD ([facility]) PRE-OP DIAGNOSIS: Anemia TISSUE SUBMITTED: Antrum biopsy for H. pylori and path MICROSCOPIC DESCRIPTION Slides are reviewed. MICROSCOPIC DIAGNOSIS Antrum biopsy: Chronic active gastritis. SJ:jaswant 03/19/18 Signed Tyrone Villarreal 03/19/18 <signature on file> Performed By: #### PGASB #### [facility] [place], [address] IMMUNOHISTOCHEMISTRY Observed: 03/18/2018 Status: F Source: [place] 12:00 AM [facility] REPOSITORY Patient: RANDI HAGEN : 1960 (57/M) Acct Num: [id number] Phys: Dmitri Baltazar MD Unit Num: [id number] Loc: EN Specimen: [id number] Received: 03/19/181041 Spec Type: IMMUNO TISSUES 1 TISSUES: Stomach, NOS SPECIMEN INFORMATION: Tissue Source: Antrum biopsy Clinical Info: Anemia Specimen Number: [id number] CPT code: 94580 METHODOLOGY: Deparaffinized sections of prefer/formalin-fixed tissue or PAP/DQ stained slides are incubated with monoclonal/polyclonal antibodies/oligonucleotide probes. Localization is made via biotin free immunoperoxidase method. Appropriate controls are performed and reacted as expected. Results on target cell population are indicated in the following table: RESULTS: ANTIBODY / CLONE RESULT H Pylori (polyclonal) positive These tests were developed and their performance characteristics determined by [facility]. They may not have been cleared or approved by the U.S. Food and Drug Administration. The FDA has determined that such clearance or approval is not necessary. INTERPRETATION: Antrum, biopsy: Positive for numerous Helicobacter pylori organisms. SJ:jaswant 03/22/18 PHYSICIAN AND INSTITUTION [place] [phone] Signed Tyrone Villarreal 03/22/18 <signature on file> Performed By: #### PIMM #### [facility] [address] [place] [address]. [place], [place], [address] SURGERY VISIT REPORT Observed: 02/22/2018 Status: F Source: [place] 2:38 PM [facility] REPOSITORY [facility] [address] [place] [address]. 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 Is patient in pain?: No Allergies bacitracin [From Triple Antibiotic] Adverse Reaction (Unknown, Verified 02/22/18 13:54) Unknown neomycin [From Triple Antibiotic] Adverse Reaction (Unknown, Verified 02/22/18 13:54) Unknown polymyxin B [From Triple Antibiotic] Adverse Reaction (Unknown, Verified 02/22/18 13:54) Unknown Medications amlodipine 5 mg tablet 5 mg PO QDAY 11/23/17 [History Confirmed 02/22/18] aspirin 81 mg tablet,delayed release 81 mg PO QDAY 11/23/17 [History Confirmed 02/22/18] atorvastatin 20 mg tablet 20 mg PO QDAY 11/23/17 [History Confirmed 02/22/18] indomethacin 50 mg capsule 50 mg PO TID 11/23/17 [History Confirmed 02/22/18] lisinopril 40 mg tablet 40 mg PO QDAY 11/23/17 [History Confirmed 02/22/18] pantoprazole 20 mg tablet,delayed release 20 mg PO QDAY 11/23/17 [History Confirmed 02/22/18] allopurinol 100 mg tablet 100 mg PO QDAY 11/26/17 [History Confirmed 02/22/18] carvedilol 25 mg tablet 25 mg PO BID 11/26/17 [History Confirmed 02/22/18] magnesium hydroxide 400 mg/5 mL oral suspension 30 ml PO QDAY PRN 11/26/17 [History Confirmed 02/22/18] PFSH Medical History Gout (Acute) History of aortic valve replacement with bioprosthetic valve (Chronic 07/2015) Hyperlipidemia (Acute) Hypertension (Chronic) Ascending aortic aneurysm (Acute) Nonrheumatic aortic (valve) stenosis (Acute) Arthritis (Acute) COPD (chronic obstructive pulmonary disease) (Acute) Stomach ulcer (Acute) Surgical History H/O ascending aortic replacement (Resolved 07/2015) H/O aortic valve replacement (Resolved 07/2015) History of cholecystectomy (Resolved) Family History Brother S/P AVR (aortic valve replacement) Mother Colon cancer Social History Smoking Status: Former smoker alcohol intake: never substance use type: marijuana HPI HPI HPI: RANDI HAGEN, is a 57 M who presents to the office today for surgical consultation regarding anemia. The patient is referred by his primary care physician Dr Priyank Azul and a written copy of my surgical consult recommendations will be returned to him. On February 08, 2018 patient had a white count of 9 hemoglobin 12.5 record 38.2 platelet count 160,000. Previously by report his hemoglobin was greater than 13. The patient has a family history her mother who had colon cancer when she was in her 50s. The patient describes a remote history of peptic ulcer disease when he was in his 20s. However he only took uffj-gyb-kagjkuv antacids at that time. He has a history of a very heavy amount of cigarette smoking at 3 packs/day. He quit 11 years ago. He denies current alcohol use. March 2016 he had a aortic valve replacement with a porcine aortic valve. He thinks his local mold operator is Dr. Meadows. He also had an ascending aortic graft replacement Patient denies bright red blood per rectum or melena. He claims he is able to climb a flight of stairs. He denies any abdominal pain. Body weight is 319 pounds. BMI is 43.3. ROS General General: No weight change, appetite, fatigue, colon cancer, breast cancer or weakness HEENT HEENT: No difficulty swallowing, eye injury, eye surgery, swollen glands or hoarseness Endo Endocrine: No thyroid disease, diabetes mellitus, thyroid cancer, Hair loss, heat intolerance or cold intolerance Skin Skin: No rash or changing moles Breast Breast: No left breast lump, right breast lump, nipple discharge, breast pain, abnormal mammogram, abnormal US or breast enlargement Musc Musculoskeletal: Yes arthritis and gout; no back problems, rheumatoid arthritis or joint pain Cardio Cardiovascular: Yes heart disease, atrial fibrillation, high blood pressure and murmur; no pacemaker, heart attack, heart stent, palpitations, shortness of breat with exertion or chest pain Psych Psychiatric: No depression, anxiety or hearing voices Resp Respiratory: No shortness of breath, No sleep apnea, No cough, Yes COPD, No asthma, No emphysema, No wheezing Gastro Gastrointestinal: No abdominal pain, No nausea or vomiting, No diarrhea, No constipation, No blood in stool, No acid reflux, Yes hemorrhoids, Yes ulcers, Yes gallbladder problem, No black,tarry stools Vincent Hematologic: Yes blood thinners, No blood disorders, No bleeding, No anemia, No blood clots Neuro Neurologic: No system reviewed and no additional complaints, except as docu, No as per HPI, No abnormal walking, No abnormal hearing, No abnormal movements, No abnormal speech, No behavioral changes, No burning sensations, No confusion, No seizure-like activity, No unsteadiness, No dizziness, No localized weakness, No frequent falls, No headache(s), No lack of coordination, No loss of vision, No memory loss, No numbness, No other visual disturbances, No radiating pain, No restless legs, No sensory deficit, No fainting, No tingling, No tremor(s), No weakness, No other Exam Const General: cooperative Nutritional Appearance: obese morbidly obese Orientation: alert, awake, oriented x3 HENMT Head: normal to inspection Eyes General: appearance normal, both eyes and all related structures Chest Breast Palpation: No nipple discharge Resp Effort AND Inspection: normal respiratory effort Auscultation: clear to auscultation bilaterally Cardio Rate: regular rate Rhythm: regular rhythm Heart Sounds: murmur systolic Pulses: brachial pulses present, radial pulses present GI Palpation: soft, no hepatosplenomegaly Auscultation: normal bowel sounds Other: I am not able to detect any internal organs second the patient's body habitus Skin General: no rashes or lesions noted Neuro Cranial Nerves: CN's II-XI intact bilaterally Extrem Other: 1+ bilateral lower extremity pitting edema Psych Affect: normal affect Assessment AND Plan Problems 1. Anemia, unspecified type D64.9 Plan I have recommended the patient a esophagogastroduodenoscopy with possible biopsy and a colonoscopy with possible biopsy or polypectomy is indicated. He is aware of the technique, benefits, risks and alternatives. Because of his aortic valve we will provide ampicillin 2 g intravenously preprocedure. Because of his aortic valve medical complexity I recommend monitored anesthesia care. He has had an option ask and have questions answered. I very much appreciate the kind opportunity of assisting with his surgical care. It is of note that the patient states that he has never had either an upper endoscopy or colonoscopy previously. Even if there are no findings, I would anticipate follow-up colonoscopy at no greater than 5 years based upon his family history with a mother with colon cancer. Cc: Dr Priyank Baltazar M.D., F.A.C.S. Coding Level of Care Code Exp prob focused,strt fwd Diagnoses Anemia, unspecified type D64.9 Anemia type: unspecified type 02/22/18 1438 <Electronically signed by Dmitri Baltazar MD> Date Dmitri Baltazar MD Cosigner Signature: Date (if applicable) CC: Priyank Azul MD VITAMIN B12 Collected: 02/09/2018 Status: F Source: [place] 4:15 PM [facility] REPOSITORY Order Comment: PLEASE ADD MALDONADO IBC FOL B12 TO BLOOD WORK DONE 02/08/18 PER Order Date: 02/06/18 TYPE CODE TESTS RESULT OUT OF RANGE REFERENCE UNITS LAB L503.0105 211-911 pg/mL Normal Vitamin B12 452 Performed By: #### L503.0105 #### [facility] [address] [place], [address] CBC W/DIFF, AUTOMATED Collected: 02/08/2018 Status: F Source: [place] 4:15 PM [facility] REPOSITORY Order Comment: Order Date: 02/06/18 Order Info: [id number] - CBCD TYPE CODE TESTS RESULT OUT OF RANGE REFERENCE UNITS LAB L100.1000 4.4-11.0 K/mm3 Normal WBC 9.0 LAB L100.1200 4.6-6.2 M/mm3 Low RBC 4.23 LAB L100.1300 13.0-16.5 g/dl Low HGB 12.5 LAB L100.1400 40-54 % Low HCT 38.2 LAB L100.1500 80-94 fL Normal MCV 90.3 LAB L100.1600 27.0-32.0 pg Normal MCH 29.6 LAB L100.1700 32-36 g/gl Normal MCHC 32.7 LAB L100.1810 11.6-14.6 % Normal RDW CV 13.6 LAB L100.1820 35.1-43.9 fl High RDW SD 44.4 LAB L100.1900 150-450 K/mm3 Normal PLT 160 LAB L100.2000 6.2-12.0 fl Normal MPV 11.8 LAB L100.2100 47-70 % High NEUT% 71.2 LAB L100.2200 19-41 % Low LY% 17.7 LAB L100.2300 0-10 % Normal MONO% 8.2 LAB L100.2400 0-5 % Normal EO% 1.9 LAB L100.2500 0-1 % Normal BASO% 0.7 LAB L100.2550 0.0-0.9 % Normal IM GRAN % 0.300 Result Comment: IG% - Immature Granulocytes (promyelocytes, myelocytes and metamyelocytes) > 1% indicates that a LEFT SHIFT is Present. LAB L100.2620 2.0-7.7 X10 3/uL Normal Absolute Neut 6.4 LAB L100.2720 0.83-4.51 X10 3/ul Normal Absolute Lymph 1.59 Performed By: #### L100.0100, L500.4050, L500.4100, L501.1400 #### [facility] [address] [place], [place], [address] COMPREHENSIVE METABOLIC Collected: 02/08/2018 Status: F [facility] REPOSITORY Order Comment: PLEASE ADD MALDONADO IBC FOL B12 TO BLOOD WORK DONE 02/08/18 PER Order Date: 02/06/18 Order Info: [id number] - CMP Order Info: [id number] - LIPID Order Info: 3084-1 - URIC Is Patient Taking Vitamins or Folic Acid Supplements? N TYPE CODE TESTS RESULT OUT OF RANGE REFERENCE UNITS LAB L501.0100 74-106 mg/dL Normal GLU 80 Result Comment: Please note revised GLUCOSE reference range effective 2017. LAB L501.1000 7-18 mg/dL High BUN 20 LAB L501.1100 0.70-1.30 mg/dL Normal CREAT,SERUM 1.20 Result Comment: The validity of the calculated GFR AND GFRAA in patients over 70 years has not been determined. Clinical correlation is essential. LAB L501.1110 >60 mL/min Normal EST GFR 66 Result Comment: Non- GFR Calc LAB L501.1115 >60 mL/min Normal EST GFR - AA 80 Result Comment: GFR Calc LAB L501.1300 10-20 RATIO Normal BUN/CRE 16.7 LAB L501.1500 6.4-8.2 g/dL T Normal PROT 7.3 LAB L501.1800 3.2-5.0 g/dL Normal ALB 3.7 LAB L501.1950 2.2-4.2 g/dL Normal GLOB 3.6 LAB L501.2000 0.9-2.4 RATIO Normal A/G 1.0 LAB L501.2200 8.5-10.1 mg/dL CA Normal 8.9 LAB L501.4100 15-37 U/L Normal AST 25 LAB L501.4305 45-117 U/L Normal ALK P 101 LAB L501.4405 16-61 U/L Normal ALT 38 LAB L501.4600 0.20-1.00 mg/dL T Normal BILI 0.30 LAB L501.5300 136-145 mmol/L NA Normal 140 LAB L501.5600 3.5-5.1 mmol/L K Normal 4.2 LAB L501.5900 98-107 mmol/L High CL 108 LAB L501.6100 21.0-32.0 mmol/L Normal CO2 23.0 LAB L501.6200 5-15 Normal GAP 9 Performed By: #### L100.0100, L500.4050, L500.4100, L501.1400 #### [facility] [address] [place], [address] LIPID PROFILE Collected: 02/08/2018 Status: F Source: [place] 4:15 PM [facility] REPOSITORY Order Comment: PLEASE ADD MALDONADO C FOL B12 TO BLOOD WORK DONE 02/08/18 PER Order Date: 02/06/18 Order Info: [id number] - CMP Order Info: [id number] - LIPID Order Info: 3084-1 - URIC Is Patient Taking Vitamins or Folic Acid Supplements? N TYPE CODE TESTS RESULT OUT OF RANGE REFERENCE UNITS LAB L501.4900 200 mg/dL Normal CHOL 139 Result Comment: <200 mg/dL Desirable 200-240 mg/dL Borderline >240 mg/dL High Risk LAB L501.5000 mg/dL Normal TRIG 146 Result Comment: The drugs N-Acetylcysteine and Metamizole may falsely depress this assay. Serum Triglycerides Reference Interval Normal <150 mg/dL Borderline high 150 - 199 mg/dL High 200 - 499 mg/dL Very High > or = 500 mg/dL LAB L501.6400 mg/dL Normal HDL 40 Result Comment: The drugs N-Acetylcysteine and Metamizole may falsely depress this assay. Reference Range HDL <40 mg/dL Low HDL Cholesterol HDL >or= 60 mg/dL High HDL Cholesterol LAB L501.6500 0-130 mg/dL Normal LDL 70 LAB L501.6600 5-40 mg/dL Normal VLDL 29 Performed By: #### L100.0100, L500.4050, L500.4100, L501.1400 #### [facility] [address] [place], [address] URIC ACID Collected: 02/08/2018 Status: F Source: [place] 4:15 PM [facility] REPOSITORY Order Comment: PLEASE ADD [facility] FOL B12 TO BLOOD WORK DONE 02/08/18 PER Order Date: 02/06/18 Order Info: [id number] - CMP Order Info: [id number] - LIPID Order Info: 3084-1 - URIC Is Patient Taking Vitamins or Folic Acid Supplements? N TYPE CODE TESTS RESULT OUT OF RANGE REFERENCE UNITS LAB L501.1400 3.5-7.2 mg/dL High URIC 8.3 Result Comment: The drugs N-Acetylcysteine and Metamizole may falsely depress this assay. Performed By: #### L100.0100, L500.4050, L500.4100, L501.1400 #### [facility] [address] [place], [place], [address] IRON+IRON BINDING Collected: 02/08/2018 Status: F Source: [facility] 4:15 PM [facility] REPOSITORY Order Comment: PLEASE ADD MALDONADO IBC FOL B12 TO BLOOD WORK DONE 02/08/18 PER Order Date: 02/06/18 Order Info: 0786- - CMP Order Info: [id number] - LIPID Order Info: 3084-1 - URIC Is Patient Taking Vitamins or Folic Acid Supplements? N TYPE CODE TESTS RESULT OUT OF RANGE REFERENCE UNITS LAB L503.6075 250-450 ug/dL TIBC Normal 281 LAB L503.6150 65-175 ug/dL IRON Normal 84 LAB L503.6250 15.0-55.0 % IRON Normal SATURATION 29.9 Performed By: #### L503.6030, L503.6550, L506.0250 #### [facility] [address] [place], [address] FERRITIN Collected: 02/08/2018 Status: F Source: [place] 4:15 PM [facility] REPOSITORY Order Comment: PLEASE ADD MALDONADO IBC FOL B12 TO BLOOD WORK DONE 02/08/18 PER Order Date: 02/06/18 Order Info: [id number] - CMP Order Info: [id number] - LIPID Order Info: [id number] - URIC Is Patient Taking Vitamins or Folic Acid Supplements? N TYPE CODE TESTS RESULT OUT OF RANGE REFERENCE UNITS LAB L503.6550 26-388 ng/mL Normal FERRITIN 102 Performed By: #### L503.6030, L503.6550, L506.0250 #### [facility] [address] [place], [address] FOLATES, (FOLIC ACID) Collected: 02/08/2018 Status: F Source: [place] 4:15 PM [facility] REPOSITORY Order Comment: PLEASE ADD MALDONADO IBC FOL B12 TO BLOOD WORK DONE 02/08/18 PER Order Date: 02/06/18 Order Info: [id number] - CMP Order Info: [id number] - LIPID Order Info: 3084-1 - URIC Is Patient Taking Vitamins or Folic Acid Supplements? N TYPE CODE TESTS RESULT OUT OF RANGE REFERENCE UNITS LAB L506.0250 3.1-55.4 ng/mL Normal FOLATES 24.10 Result Comment: Slight Hemolysis, Result may be falsely increased. Performed By: #### L503.6030, L503.6550, L506.0250 #### [facility] [address] [place], [address] CHEST WITH CONTRAST Observed: 12/30/2017 Status: F Source: [place] 1:26 PM [facility] REPOSITORY [facility] Imaging Services [address] [place] [address] Chest WITH Contrast MR#: [id number] Acct: [id number] Name: RANDI HAGEN Rep #: [id number] : 1960 M 57 From: Galo Reyes MD PCP: Priyank Azul MD Status: REG CLI Study: Chest WITH Contrast Date of Exam: 12/30/17 Exam# [id number] Ordering Dr: Ras Meadows MD STUDY: CT CHEST WITH CONTRAST REASON FOR EXAM: Male, 57 years old. Status post thoracic aortic aneurysm repair, follow-up RADIATION DOSAGE (If Supplied By Facility): CTDIvol = ( 13.93 ) mGy, DLP = ( 750.74 ) mGycm TECHNIQUE: Transaxial imaging was performed following intravenous administration of 100 ml of Isovue 300 contrast material. Multiplanar coronal and sagittal images were reformatted. Individualized dose optimization techniques were used for this CT. COMPARISON: None. FINDINGS: The lungs are normal. There is no demonstrated pleural abnormality. Normal heart and pericardium. Sternotomy wires are noted. There is prosthetic aortic valve. Normal mediastinum. Normal hilar regions. Normal enhanced pulmonary arteries. Therer operative changes the ascending thoracic aorta. The thoracic aorta is normal in caliber without evidence of aneurysm or dissection. There are multi-level degenerative changes of the thoracic spine. There is no demonstrated abnormality of the visualized upper abdomen. CT/Chest WITH Contrast IMPRESSION: 1. No thoracic aortic aneurysm or dissection. Operative changes, as above. Electronically Signed: Galo Reyes MD at 19:35 EDT , Service support , CC: Priyank Azul MD; Ras Meadows MD Mechanic Foreman: Signed ECHOCARDIOGRAM COMPLETE Observed: 12/14/2017 Status: F Source: [place] 8:46 AM [facility] REPOSITORY [facility] Cardiovascular Services [address] [place] [address] Echo Complete 12/10/17 1401 MR#: [id number] Acct: [id number] Name: RANDI HAGEN Rep #: [id number] : 1960 57 From: Ras Meadows MD Attending Dr: Ras Meadows MD Status: REG CLI Ordering Dr: Ras Meadows MD Date: 12/10/17 Location: [facility] Sex: M C Admitted: Reason For Study: Aortic valve replacement Procedure This was a 2D Doppler, Color Flow transthoracic echocardiogram. The exam was of fair technical quality due to body habitus. The study was technically difficult. Exam performed in department. Left Ventricle Normal LV size. Left ventricular systolic function is normal. The estimated ejection fraction is 60 %. There is evidence of diastolic dysfunction. No regional wall motion abnormalities noted. Right Ventricle Normal RV size. Normal systolic function. Atria The left atrium is mildly enlarged. Normal right atrium. No doppler evidence for ASD. Mitral Valve There is no mitral annular calcification. Normal mitral valve. Trivial mitral valve insufficiency. Tricuspid Valve Normal tricuspid valve. Mild tricuspid valve insufficiency. Right ventricular systolic pressure estimated to be 51 mmHg. Aortic Valve Stable appearing bioprosthetic aortic valve apparatus. Pulmonic Valve The pulmonic valve is not well visualized. Great Vessels Normal sized aortic root. Pericardium/Pleural No pericardial effusion. MMode/2D Measurements AND Calculations LVIDd: 4.2 cm IVSd: 1.3 cm LVOT diam: 2.2 cm LVIDs: 2.7 cm LVPWd: 1.3 cm LVOT area: 3.7 cm2 FS: 35.9 % Ao root diam: 3.5 cm LAV(MOD-bp): 59.8 ml LA A4 area: 21.6 cm2 LA dimension: 4.3 cm LAV(MOD-bp) Indexed: 23.5 ml/m2 LAV(MOD-sp2): 59.2 ml LAV(MOD-sp4): 55.8 ml RA A4 area: 19.1 cm2 Doppler Measurements AND Calculations MV E max gaurav: 114.9 cm/sec Lat Peak E' Gaurav: 11.1 cm/sec Med Peak E' Gaurav: 6.5 cm/sec MV A max gaurav: 105.0 cm/sec E/E' lat: 10.4 E/E' med: 17.6 MV E/A: 1.1 Ao V2 max: 264.5 cm/sec LV V1 max: 147.8 cm/sec SV(LVOT): 118.8 ml Ao max P.0 mmHg LV V1 max P.7 mmHg Ao V2 mean: 169.9 cm/sec LV V1 mean P.6 mmHg Ao mean P.4 mmHg LV V1 mean: 100.7 cm/sec Ao V2 VTI: 51.2 cm LV V1 VTI: 32.1 cm HUBERT(I,D): 2.3 cm2 HUBERT(V,D): 2.1 cm2 PA V2 max: 234.4 cm/sec TR max gaurav: 341.4 cm/sec PA V2 mean: 148.9 cm/sec TR max P.6 mmHg PA V2 VTI: 49.4 cm Interpretation Summary The study was technically difficult. Left ventricular systolic function is normal. The estimated ejection fraction is 60 %. The left atrium is mildly enlarged. Trivial mitral valve insufficiency. Mild tricuspid valve insufficiency. Stable appearing bioprosthetic aortic valve apparatus. Right ventricular systolic pressure estimated to be 51 mmHg. There is evidence of diastolic dysfunction. Ordering Physician: Ras Meadows Referring Physician: Priyank Azul Performed By: Lexie Doe RDCS 12/14/17 0845 Date Ras Meadows MD CC: Priyank Azul MD; Ras Meadows MD Date Dictated: 12/10/17 1401 Date Transcribed: 12/14/1745 Mechanic Foreman: Signed CARDIOLOGY VISIT Observed: 11/26/2017 Status: F Source: [place] REPORT 1:58 PM [facility] REPOSITORY [address] [place] [address] OFFICE VISIT Date of Service: 11/26/17 MR#: [id number] Acct: [id number] Name: RANDI HAGEN Rep #: [id number] : 1960 Provider: Ras Meadows MD Age/Sex: 57/M Location: [facility] Status: Signed [facility] HPI Details: RANDI HAGEN, is a 57 M who presents to the office today for for outpatient cardiovascular consultation based upon a history of underlying aortic valve disorder with a bicuspid aortic valve with severe calcification/fibrosis status post aortic valve replacement with a #25 mm Fara-Morgan valve as well as an ascending and ian-arch replacement with a Gelweave 20 mm 10 T graft at the [facility] in July 2015. The patient states that he underwent pre-open heart surgery evaluation with a diagnostic cardiac catheterization. At that time his coronary arteries were unremarkable as he did not really require coronary artery revascularization therapy. The cardiac catheterization report is unavailable at this time for review. The patient does have a report with respect to an echocardiogram which stated that the left ventricular function was normal in size and function and aortic valve had severe aortic valve stenosis/calcification in the aorta was dilated at 4.2 cm. Since surgery the patient states he has done well other than he does sense an occasional palpitation at night. He states he was told he may feel this. He does not complain of any concerning symptoms suspicious for angina pectoris nor does he have any overt episodes of CHF or pulmonary edema. There has been no near syncope or syncope. The patient does state he has some element of carotid artery disease. He had a carotid artery duplex study performed on 10/02/2017 at [facility]. According to the report he had no significant plaque or stenosis bilaterally. There is a comment that he had postoperative atrial fibrillation. He apparently had been on antiarrhythmic therapy with amiodarone for a period of time. That was subsequently discontinued. The patient did have an ECG today. He was noted to be in sinus rhythm with PACs with nonspecific ST segment abnormality. Intake Vital Signs11/26/17 Height 6 ft 11/26/17 Weight: 302 lb 11/26/17 Body Mass Index (BMI) 40.9 11/26/17 Blood Pressure 120/62 Intake Visit Reasons: Hypertension/AVR/Ref. Schinner Allergies bacitracin [From Triple Antibiotic] Adverse Reaction (Unknown, Verified 11/26/17 13:02) Unknown neomycin [From Triple Antibiotic] Adverse Reaction (Unknown, Verified 11/26/17 13:02) Unknown polymyxin B [From Triple Antibiotic] Adverse Reaction (Unknown, Verified 11/26/17 13:02) Unknown Medications amlodipine 5 mg tablet 5 mg PO QDAY 11/23/17 [History Confirmed 11/26/17] aspirin 81 mg tablet,delayed release 81 mg PO QDAY 11/23/17 [History Confirmed 11/26/17] atorvastatin 20 mg tablet 20 mg PO QDAY 11/23/17 [History Confirmed 11/26/17] indomethacin 50 mg capsule 50 mg PO TID 11/23/17 [History Confirmed 11/26/17] lisinopril 40 mg tablet 40 mg PO QDAY 11/23/17 [History Confirmed 11/26/17] pantoprazole 20 mg tablet,delayed release 20 mg PO QDAY 11/23/17 [History Confirmed 11/26/17] allopurinol 100 mg tablet 100 mg PO QDAY 11/26/17 [History Confirmed 11/26/17] carvedilol 25 mg tablet 25 mg PO BID 11/26/17 [History Confirmed 11/26/17] magnesium hydroxide 400 mg/5 mL oral suspension 30 ml PO QDAY PRN 11/26/17 [History Confirmed 11/26/17] [facility] Medical History History of aortic valve replacement with bioprosthetic valve (Chronic 07/2015) Hyperlipidemia (Acute) Hypertension (Chronic) Ascending aortic aneurysm (Acute) Nonrheumatic aortic (valve) stenosis (Acute) Gout (Acute) Surgical History H/O aortic valve replacement (Resolved 07/2015) H/O ascending aortic replacement (Resolved 07/2015) History of cholecystectomy (Resolved) Family History Brother S/P AVR (aortic valve replacement) Social History Smoking Status: Former smoker alcohol intake: never substance use type: marijuana ROS Const Const: Positive for weakness (not as strong as I used too); negative for fatigue, weight gain, weight loss, frequent falls or excessive sweating Eyes Eyes: Negative for change in vision, blurry vision or transient loss of vision ENT ENT: Positive for dizziness (after medications); negative for balance problems Cardio Chest Pain: No Palpitations: Yes (occasional) feels like its: irregular Edema: Bilateral (occasional) Muscle aches with walking: None Resp Respiratory: Negative for SOB with activity or SOB at rest GI GI: Negative vomiting or vomiting blood/hematemesis : Negative for hematuria Musc Musc: Positive for muscle aches/ myalgia (shoulder pain) and joint pain (arthritis in bilat knees); negative for balance problems or muscle weakness Skin Skin: Negative non-healing lesions or rash Neuro Neuro: Positive for weakness (not as strong as I used too), dizziness (after medications) and lightheadedness (after medications, occasionally at rest and with ambulation); negative for blurry vision, frequent falls or orthostatic symptoms Vincent Hematologic/Lymphatic: Negative for easy bleeding Endo Endo: Negative for fatigue or excessive sweating Psych Psych: Negative for anxiety or depression Allergy Allergy/Immunology: Negative for hives, Negative for rash Cardiology Exam Const Appearance: cooperative, healthy appearing, comfortable, no acute distress, well developed and well groomed Nutritional Appearance: overweight Orientation: alert, awake and oriented x3 Head Head: normal to inspection, normocephalic and atraumatic Ears: hearing grossly normal bilaterally Nose: external nose normal Face and Sinus: face symmetric Mouth: oral mucosae normal Teeth and gingiva: poor dentition Eyes Eyelids: eyelids normal Conjunctivae: conjunctivae normal Pupils: PERRL EOM: EOM intact bilaterally Neck Neck: normal visual inspection and full ROM Carotids: normal carotid upstroke Chest Chest inspection: normal inspection of the chest and symmetric chest movement Auscultation: Bilateral: Clear to Auscultation Cardio Palpation: normal PMI Rate: regular rate Rhythm: regular rhythm and ectopic beats Heart sounds: S1 normal and S2 normal Murmur: Grade 3/6, harsh, mid systolic, LLSB, LVOT, sternal notch and radiates to carotids GI GI: normal to inspection, bowel sounds present, soft and no hepatosplenomegaly Neuro General: alert, awake, oriented x3, gait normal, moves all extremities, no focal sensory deficit and no focal motor deficits Skin Skin: no rashes or lesions noted Extremities Pulses: Normal: Right Radial Pulse, Left Radial Pulse Lower Extremity Edema: None: Bilateral Psych Psychological: normal affect Assessment AND Plan 1. Nonrheumatic aortic (valve) stenosis I35.0 Plan At the present time the patient appears to be doing reasonably well with respect to his aortic valve disorder/replacement. He does need to continue appropriate surveillance and monitoring. This will be with a future echocardiographic study. At the same time he needs to continue AHA antibiotic prophylaxis. He was counseled regarding this. Orders Orders: 2. History of aortic valve replacement with bioprosthetic valve Z95.3 #25 CE valve Plan Again the patient appears to be stable at this time. He continues with a cardiac murmur. He will be followed with an echocardiogram peer Orders Orders: 3. Ascending aortic aneurysm I71.2 Plan The patient has had his ascending aorta repaired as noted above. This will also be followed. Hopefully the echocardiogram will give some additional information regarding this diagnosis. Orders Orders: 4. Postoperative atrial fibrillation I97.89; I48.91 Plan He did have postoperative atrial fibrillation. He appears to be remaining in sinus rhythm at this time. He will continue medical management and follow-up. 5. Hyperlipidemia E78.5 Plan He does have a history of hyperlipidemia and is on lipid-lowering medication with a statin. He is following with his primary care physician for this. 6. Essential hypertension I10 Plan His blood pressure appears to be reasonably well-controlled at this time. He will continue medical management per Orders Orders: Plan Detail Additional Comments He will be scheduled for future outpatient cardiovascular follow-up to monitor his condition. Thank you for allowing me to participate in the care of your patient. Please don't hesitate to call if any issues arise. This note was generated using a voice recognition system and there may be incorrect words, spelling or punctuation that were not noted when reviewing the office note prior to saving. Follow Up 6 Months Coding Level of Care Code Off vis,new,level 3 Diagnoses Nonrheumatic aortic (valve) stenosis I35.0 History of aortic valve replacement with bioprosthetic valve Z95.3 Ascending aortic aneurysm I71.2 Postoperative atrial fibrillation I97.89; I48.91 Hyperlipidemia E78.5 Essential hypertension I10 Hypertension type: essential hypertension Coding Level of Care Code Off vis,new,level 3 Diagnoses Nonrheumatic aortic (valve) stenosis I35.0 History of aortic valve replacement with bioprosthetic valve Z95.3 Ascending aortic aneurysm I71.2 Postoperative atrial fibrillation I97.89; I48.91 Hyperlipidemia E78.5 Essential hypertension I10 Hypertension type: essential hypertension 11/26/17 1358 <Electronically signed by Ras Meadows MD> Date Ras Meadows MD Cosigner Signature: Date (if applicable) CC: Priyank Azul MD PROTEIN, URINE 24HR Collected: 10/12/2017 Status: F Source: [place] 8:00 AM [facility] REPOSITORY TYPE CODE TESTS RESULT OUT OF RANGE REFERENCE UNITS LAB L501.1850 24.0 HOURS Normal UR COLLECT 24.0 TIME LAB L501.1875 mL Normal UR TOTAL 1600 VOLUME LAB L501.1900 <11.9 mg/dL High URINE PROTEIN 13.3 LAB L501.1925 <150 MG/24HR mg/24HR High 24hr UR 212.8 PROTEIN Performed By: #### L500.9000, L502.000 #### [facility] [address] [facility]. [place], [place], [address] 24 HR URINE CREATININE Collected: 10/12/2017 Status: F Source: [place] 8:00 AM [facility] REPOSITORY TYPE CODE TESTS RESULT OUT OF RANGE REFERENCE UNITS LAB L502.0100 24.0 HOURS Normal UR COLLECT 24.0 TIME LAB L502.0200 L Normal UR TOTAL 1.60 VOLUME LAB L502.0300 NO RANGE EST. mg/dL Normal URINE CREAT 164.00 LAB L502.0400 0.90-2.10 g/24 HR High UR.CREAT/24hr 2.62 Performed By: #### L500.9000, L502.000 #### [facility] [address] [facility]. [place], [place], [address] URIC ACID, 24 HR UR Collected: 10/12/2017 Status: F Source: [place] 8:00 AM [facility] REPOSITORY TYPE CODE TESTS RESULT OUT OF RANGE REFERENCE UNITS LAB L3600.6020 Not Estab. mg/dL Normal URIC 34.4 ACID,UR LAB L3600.6040 250.0-750.0 mg/24 hr Normal URIC 550.4 ACID,24UR Result Comment: Performed at: - [facility] [id number] Electric Spot Welder: Chad Shea PhD, Phone: [phone] Performed By: #### L3600.6000 #### [facility] (refer to report for specific site) refer to report for address and phone number KNEE 3 VIEWS Observed: 10/09/2017 Status: F Source: [place] 4:31 PM [facility] REPOSITORY [facility] Imaging Services [address] [place] [address] Knee 3 Views MR#: [id number] Acct: [id number] Name: RANDI HAGEN Rep #: [id number] : 1960 M 57 From: Dayami Sears MD PCP: Priyank Azul MD Status: REG CLI Study: Knee 3 Views Date of Exam: 10/09/17 Exam# [id number] Ordering Dr: Priyank Azul MD STUDY: X-RAY - RIGHT KNEE REASON FOR EXAM: Male, 57 years old. Bilateral knee pain TECHNIQUE: 3 weight bearing view(s) of the knee. COMPARISON: None. FINDINGS: Normal visualized distal femur. Normal visualized proximal tibia and fibula. Normal proximal tibiofibular articulation. Mild spurring involving the femoral notch and tibial spine. There is moderate degenerative arthrosis of the medial femorotibial compartment with moderate joint space narrowing. Normal lateral femorotibial compartment. There is moderate degenerative arthrosis of the patellofemoral articulation. There is no demonstrated joint effusion. The soft tissue structures are unremarkable. 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 No effusion. Electronically Signed: Dayami Sears MD at 7:14 EDT , Service support , CC: Priyank Azul MD Mechanic Foreman: Signed KNEE 3 VIEWS Observed: 10/09/2017 Status: F Source: [place] 4:31 PM [facility] REPOSITORY [facility] Imaging Services [address] [place] [address] Knee 3 Views MR#: [id number] Acct: [id number] Name: RANDI HAGEN Rep #: [id number] : 1960 M 57 From: Dayami Sears MD PCP: Priyank Azul MD Status: REG CLI Study: Knee 3 Views Date of Exam: 10/09/17 Exam# [id number] Ordering Dr: Priyank Azul MD STUDY: X-RAY - LEFT KNEE REASON FOR EXAM: Male, 57 years old. Bilateral knee pain TECHNIQUE: 3 weight bearing view(s) of the knee. COMPARISON: None. FINDINGS: Normal visualized distal femur. Normal visualized proximal tibia and fibula. Normal proximal tibiofibular articulation. Mild spurring of tibial spine and femoral notch. There is mild to moderate degenerative arthrosis of the medial femorotibial compartment with moderate joint space narrowing. Normal lateral femorotibial compartment. There is mild to moderate degenerative arthrosis of the patellofemoral articulation. There is no demonstrated joint effusion, the suprapatella joint space however is indistinct and slightly hazy.. The soft tissue structures are unremarkable. RAD/Knee 3 Views IMPRESSION: Moderate degenerative changes involving the medial femoral tibial and patellofemoral compartment. No overt effusion seen, there is however fat infiltration in the suprapatellar joint space which may be indirect sign of small effusion. Electronically Signed: Dayami Sears MD at 7:17 EDT , Service support , CC: Priyank Azul MD Mechanic Foreman: Signed CAROTID DUPLEX Observed: 10/03/2017 Status: F Source: [place] ULTRASOUND 8:47 PM [facility] REPOSITORY [facility] Cardiovascular Services [address] [place] [address] Carotid Duplex Ultrasound 10/02/17 0942 MR#: [id number] Acct: [id number] Name: RANDI HAGEN Rep #: [id number] : 1960 57 From: Kenney Crowder MD Attending Dr: Priyank Azul MD Status: REG CLI Ordering Dr: Priyank Azul MD Date: 10/02/17 Location: [facility] Sex: M C Admitted: Reason For Study: Carotid stenosis Rt. Velocities/BP Lt. Velocities/BP Prox CCA 104.0/17.6 cm/sec. Prox CCA 96.2/17.0 cm/sec. Mid CCA 93.2/17.6 cm/sec. Mid CCA 98.5/19.3 cm/sec. Dist CCA 91.5/14.7 cm/sec. Dist CCA 75.0/19.3 cm/sec. Prox ICA 63.5/14.0 cm/sec. Prox ICA 41.4/11.4 cm/sec. Mid ICA 49.9/16.3 cm/sec. Mid ICA 65.2/15.9 cm/sec. Dist ICA 70.9/18.1 cm/sec. Dist ICA 77.8/19.8 cm/sec. Rt. ICA/CCA = .76. Lt. ICA/CCA = .79. Prox ECA 122.0/14.7 cm/sec. Prox ECA 132.0/21.2 cm/sec. Rt. Vert. 35.4/6.7 cm/sec. Lt. Vert. 42.0/9.8 cm/sec. Right Extracranial There is homogeneous, smooth atherosclerotic plaque noted in the right common carotid artery. There is intimal thickening but no significant atherosclerotic plaque noted in the right internal carotid artery. There is heterogeneous, smooth atherosclerotic plaque noted in the right external carotid artery. Antegrade flow is noted in the right vertebral artery. Left Extracranial There is homogeneous, smooth atherosclerotic plaque noted in the left common carotid artery. There is intimal thickening but no significant atherosclerotic plaque noted in the left internal carotid artery. There is intimal thickening but no significant atherosclerotic plaque noted in the left external carotid artery. Antegrade flow is noted in the left vertebral artery. Procedure Carotid Duplex 91033. Exam performed in department. Interpretation Summary No significant atherosclerotic plaque or stenosis noted in the internal carotid arteries bilaterally. Flow within the vertebral arteries is antegrade bilaterally. Ordering Physician: Priyank Azul Referring Physician: Priyank Azul Performed By: Bonnie Hannah RVT 10/03/172046 Date Kenney Crowder MD CC: Priyank Azul MD Date Dictated: 10/02/17941 Date Transcribed: 10/03/172046 Mechanic Foreman: Signed URINALYSIS, COMPLETE Collected: 09/18/2017 Status: F Source: [place] 4:54 PM [facility] REPOSITORY Order Comment: How was Urine Obtained? CLEAN CATCH TYPE CODE TESTS RESULT OUT OF RANGE REFERENCE UNITS LAB L400.3000 Yellow COLOR Normal Yellow LAB L400.3050 Clear Normal CLARITY Clear LAB L400.3200 Normal mg/dl Normal GLUCOSE, UR Normal LAB L400.3300 Negative mg/dL Normal BILIRUBIN URINE Negative LAB L400.3400 Negative mg/dl Normal KETONE UR Negative LAB L400.3465 1.002-1.030 Normal SP.GR. DIPSTX 1.020 LAB L400.3550 5.0 - 8.0 pH UR Normal 6.0 LAB L400.3600 Negative mg/dl PROT Normal DIPSTX Negative LAB L400.3700 Normal mg/dl Normal UROBILI Normal LAB L400.3750 Negative Normal NITRITE UR Negative LAB L400.3780 Negative /ul Normal OCCULT BLOOD-UR Negative LAB L400.3800 Negative /ul LEUK Normal ESTERASE Negative LAB L400.4050 0-5 /hpf WBC Normal 0-5 SEEN LAB L400.4100 0-5 /hpf 0 Normal RBC-UA SEEN LAB L400.4150 0-5 /hpf SQUAM 0 Normal EPI SEEN LAB L400.4300 None Seen /hpf 0 Normal BACTERIA SEEN LAB L400.4350 <or=2+ /hpf 0 Normal MUCUS, URINE SEEN Performed By: #### L400.0001 #### [facility] [address] [place], [address] COMPREHENSIVE METABOLIC Collected: 09/18/2017 Status: F Source: [place] 4:54 PM [facility] REPOSITORY Order Comment: Order Date: 09/18/17 Order Info: 0786-1 - CMP Order Info: [id number] - LIPID Order Info: 3084-1 - URIC Order Info: 65049-8 - MG Order Info: 3016-3 - TSH TYPE CODE TESTS RESULT OUT OF RANGE REFERENCE UNITS LAB L501.0100 74-106 mg/dL Normal GLU 87 Result Comment: Please note revised GLUCOSE reference range effective 2017. LAB L501.1000 7-18 mg/dL High BUN 20 LAB L501.1100 0.70-1.30 mg/dL Normal CREAT,SERUM 1.28 Result Comment: The validity of the calculated GFR AND GFRAA in patients over 70 years has not been determined. Clinical correlation is essential. LAB L501.1110 >60 mL/min Normal EST GFR 62 Result Comment: Non- GFR Calc LAB L501.1115 >60 mL/min Normal EST GFR - AA 75 Result Comment: GFR Calc LAB L501.1300 10-20 RATIO Normal BUN/CRE 15.6 LAB L501.1500 6.4-8.2 g/dL T Normal PROT 7.4 LAB L501.1800 3.2-5.0 g/dL Normal ALB 3.9 LAB L501.1950 2.2-4.2 g/dL Normal GLOB 3.5 LAB L501.2000 0.9-2.4 RATIO Normal A/G 1.1 LAB L501.2200 8.5-10.1 mg/dL CA Normal 8.9 LAB L501.4100 15-37 U/L Normal AST 26 LAB L501.4305 45-117 U/L Normal ALK P 94 LAB L501.4405 16-61 U/L Normal ALT 36 LAB L501.4600 0.20-1.00 mg/dL T Normal BILI 0.20 LAB L501.5300 136-145 mmol/L NA Normal 143 LAB L501.5600 3.5-5.1 mmol/L K Normal 4.3 LAB L501.5900 98-107 mmol/L High CL 109 LAB L501.6100 21.0-32.0 mmol/L Normal CO2 27.0 LAB L501.6200 5-15 Normal GAP 7 Performed By: #### L500.4050, L500.4100, L501.1400, L501.5200, L501.9520, L100.0100 #### [facility] [address] [place], [place], [address] LIPID PROFILE Collected: 09/18/2017 Status: F Source: [place] 4:54 PM [facility] REPOSITORY Order Comment: Order Date: 09/18/17 Order Info: 0786-1 - CMP Order Info: [id number] - LIPID Order Info: 3084-1 - URIC Order Info: 33294-1 - MG Order Info: 3016-3 - TSH TYPE CODE TESTS RESULT OUT OF RANGE REFERENCE UNITS LAB L501.4900 200 mg/dL Normal CHOL 118 Result Comment: <200 mg/dL Desirable 200-240 mg/dL Borderline >240 mg/dL High Risk LAB L501.5000 mg/dL Normal TRIG 138 Result Comment: The drugs N-Acetylcysteine and Metamizole may falsely depress this assay. Serum Triglycerides Reference Interval Normal <150 mg/dL Borderline high 150 - 199 mg/dL High 200 - 499 mg/dL Very High > or = 500 mg/dL LAB L501.6400 mg/dL Low HDL 38 Result Comment: The drugs N-Acetylcysteine and Metamizole may falsely depress this assay. Reference Range HDL <40 mg/dL Low HDL Cholesterol HDL >or= 60 mg/dL High HDL Cholesterol LAB L501.6500 0-130 mg/dL Normal LDL 52 LAB L501.6600 5-40 mg/dL Normal VLDL 28 Performed By: #### L500.4050, L500.4100, L501.1400, L501.5200, L501.9520, L100.0100 #### [facility] [address] [place], [place], [address] URIC ACID Collected: 09/18/2017 Status: F Source: [place] 4:54 PM [facility] REPOSITORY Order Comment: Order Date: 09/18/17 Order Info: [id number] - CMP Order Info: [id number] - LIPID Order Info: 308-1 - URIC Order Info: 91204-0 - MG Order Info: 3016-3 - TSH TYPE CODE TESTS RESULT OUT OF RANGE REFERENCE UNITS LAB L501.1400 3.5-7.2 mg/dL High URIC 8.5 Result Comment: The drugs N-Acetylcysteine and Metamizole may falsely depress this assay. Performed By: #### L500.4050, L500.4100, L501.1400, L501.5200, L501.9520, L100.0100 #### [facility] [address] [place], [place], [address] MAGNESIUM Collected: 09/18/2017 Status: F Source: [place] 4:54 PM [facility] REPOSITORY Order Comment: Order Date: 09/18/17 Order Info: [id number] - CMP Order Info: [id number] - LIPID Order Info: 308-1 - URIC Order Info: [id number] - MG Order Info: 3016-3 - TSH TYPE CODE TESTS RESULT OUT OF RANGE REFERENCE UNITS LAB L501.5200 1.6-2.6 mg/dL Normal MG 2.0 Performed By: #### L500.4050, L500.4100, L501.1400, L501.5200, L501.9520, L100.0100 #### [facility] [address] [place], [place], [address] THYROID STIM HORMONE Collected: 09/18/2017 Status: F Source: [place] (TSH) 4:54 PM [facility] REPOSITORY Order Comment: Order Date: 09/18/17 Order Info: 0786-1 - CMP Order Info: [id number] - LIPID Order Info: 3081 - URIC Order Info: 76800-9 - MG Order Info: 3016-3 - TSH TYPE CODE TESTS RESULT OUT OF RANGE REFERENCE UNITS LAB L501.9520 0.358-3.74 uIU/mL Normal TSH 1.04 Performed By: #### L500.4050, L500.4100, L501.1400, L501.5200, L501.9520, L100.0100 #### [facility] [address] [place], [place], [address] CBC W/DIFF, AUTOMATED Collected: 09/18/2017 Status: F Source: [place] 4:54 PM [facility] REPOSITORY Order Comment: Order Date: 09/18/17 Order Info: 0184-1 - CBCD TYPE CODE TESTS RESULT OUT OF RANGE REFERENCE UNITS LAB L100.1000 4.4-11.0 K/mm3 Normal WBC 9.7 LAB L100.1200 4.6-6.2 M/mm3 Low RBC 4.35 LAB L100.1300 13.0-16.5 g/dl Normal HGB 13.1 LAB L100.1400 40-54 % Low HCT 39.2 LAB L100.1500 80-94 fL Normal MCV 90.1 LAB L100.1600 27.0-32.0 pg Normal MCH 30.1 LAB L100.1700 32-36 g/gl Normal MCHC 33.4 LAB L100.1810 11.6-14.6 % Normal RDW CV 13.4 LAB L100.1820 35.1-43.9 fl Normal RDW SD 43.3 LAB L100.1900 150-450 K/mm3 Normal PLT 174 LAB L100.2000 6.2-12.0 fl High MPV 12.1 LAB L100.2100 47-70 % Normal NEUT% 69.7 LAB L100.2200 19-41 % Low LY% 17.8 LAB L100.2300 0-10 % High MONO% 10.1 LAB L100.2400 0-5 % Normal EO% 1.5 LAB L100.2500 0-1 % Normal BASO% 0.6 LAB L100.2550 0.0-0.9 % Normal IM GRAN % 0.300 Result Comment: IG% - Immature Granulocytes (promyelocytes, myelocytes and metamyelocytes) > 1% indicates that a LEFT SHIFT is Present. LAB L100.2620 2.0-7.7 X10 3/uL Normal Absolute Neut 6.8 LAB L100.2720 0.83-4.51 X10 3/ul Normal Absolute Lymph 1.72 Performed By: #### L500.4050, L500.4100, L501.1400, L501.5200, L501.9520, L100.0100 #### [place] [facility] [address] [place], [address] ALLERGIES ALLERGIES DATE TYPE / CODE NAME / CODE REACTION SEVERITY SOURCE 03/16/2018 Drug neomycin/B322432 Unknown Unknown [place] [facility] Allergy/416 775(RXNORM) Hospital 061110(SNOM Repository ED CT) 03/16/2018 Drug bacitracin/F0060 Unknown Unknown [place] [facility] Allergy/416 70739(RXNORM) Hospital 885863(SNOM Repository ED CT) 03/16/2018 Drug polymyxin Unknown Unknown [place] [facility] Allergy/416 B/T576005406(RXN Hospital 180404(SNOM ORM) Repository ED CT) ENCOUNTERS ENCOUNTERS ADMIT/DISCHARGE ACCOUNT ADMITTING ENCOUNTER LOCATION SOURCE NUMBER CLASS 06/02/2018 [id number] Ambulatory [place] 1 [facility] ing:MFPLAB Repository 05/08/2018 [id number] Ambulatory [place] 3 [facility] ing:LAB Repository 03/18/2018/ [id number] Ambulatory [place] 8 6 [facility] ing:ENRoom: Repository AC12 03/18/2018/ [id number] Ambulatory BMSBuilding:B [place] 8 7 MS.CF.Counts include 234 beds at the [facility] Repository 02/22/2018/ [id number] Ambulatory BMSBuilding:B [place] 8 2 MS.Counts include 234 beds at the [facility] Repository 02/08/2018 [id number] Ambulatory [place] 2 [facility] ing:MFPLAB Repository 12/30/2017 [id number] Ambulatory [place] 1 [facility] Hospital ing:CT Repository 12/10/2017 [id number] Ambulatory [place] 3 [facility] Hospital ing:CVS Repository 12/10/2017 [id number] Ambulatory BMSBuilding:W [place] 3 [facility] Repository 11/26/2017/ [id number] Ambulatory BMSBuilding:B [place] 8 7 [facility] Repository 11/23/2017 [id number] Ambulatory BMSBuilding:B [place] 5 [facility] Repository 10/12/2017 [id number] Ambulatory [place] 0 [facility] ing:LABSPEC Repository 10/09/2017 [id number] Ambulatory [place] 0 [facility] ing:MTRAD Repository 10/02/2017 [id number] Ambulatory [place] 0 [facility] ing:CVS Repository 09/18/2017 [id number] Ambulatory [place] 7 [facility] ing:MFPLAB Repository PAYERS PAYERS ENCOUNTER GUARANTOR PAYER SUBSCRIBER SOURCE 06/02/2018 RANDI B Primary RANDI B [place] [id number] W Insurance:CARESOURCE FAIRCHILDDOB: Community [address] [place] [address] [id number] [place] [address]Vfv: Number: Repository [id number] (HP) Date:5490-57-23DX [address] [address]UQ: 06/02/2018 Secondary NOT GIVENUNK [place] Insurance:SELF PAY [facility] Number: Effective Repository Date:2018-06-02 05/08/2018 RANDI B Primary RANDI B [place] [id number] W Insurance:CARESOURCE FAIRCHILDDOB: [address] [id number] [place] [address]Sya: Number: Repository [id number] (HP) Date:9633-24-71EV [address] [address]AC: 05/08/2018 Secondary NOT GIVENUNK [place] Insurance:SELF PAY [facility] Number: Effective Repository Date:2018-05-08 03/18/2018 RANDI B Primary RANDI B [place] [id number] W Insurance:CARESOURCE FAIRCHILDDOB: [address] [id number] [place] [address]Xec: Number: Repository [id number] (HP) Date:1080-22-15CE [address] [address]QS: 03/18/2018 Secondary NOT GIVENUNK [place] Insurance:SELF PAY [facility] Number: Effective Repository Date:2018-02-22 03/18/2018 RANDI B Primary RANDI B [place] [id number] W Insurance:CARESOURCE FAIRCHILDDOB: [address] [id number] [place] [address]Vwe: Number: Repository [id number] (HP) Date:4457-36-39ZJ [address] [address]XI: 03/18/2018 Secondary NOT GIVENUNK [place] Insurance:SELF PAY [facility] Number: Effective Repository Date:2018-03-18 02/22/2018 RANDI B Primary RANDI B [place] [id number] W Insurance:CARESOURCE FAIRCHILDDOB: [address] [id number] [place] [address]Qvy: Number: Repository [id number] (HP) Date:8321-20-72EE [address] [address]RT: 02/22/2018 Secondary NOT GIVENUNK [place] Insurance:SELF PAY [facility] Number: Effective Repository Date:2018-02-22 02/08/2018 RANDI B Primary RANDI B [place] [id number] W Insurance:CARESOURCE FAIRCHILDDOB: [address] [id number] [place] [address]Iti: Number: Repository [id number] (HP) Date:6943-44-76OR [address] [address]BO: 02/08/2018 Secondary NOT GIVENUNK [place] Insurance:SELF PAY [facility] Number: Effective Repository Date:2018-02-06 12/30/2017 RANDI B Primary RANDI B [place] [id number] W Insurance:CARESOURCE FAIRCHILDDOB: [address] [id number] [place] [address]Jwu: Number: Repository [id number] (HP) Date:2797-68-64OP [address] [address]YF: 12/30/2017 Secondary NOT GIVENUNK [place] Insurance:SELF PAY [facility] Number: Effective Repository Date:2017-12-18 12/10/2017 RANDI B Primary RANDI B [place] [id number] W Insurance:CARESOURCE FAIRCHILDDOB: [address] [id number] [place] [address]Vko: Number: Repository [id number] (HP) Date:0164-03-40EJ [address] [address]FY: 12/10/2017 Secondary NOT GIVENUNK [place] Insurance:SELF PAY [facility] Number: Effective Repository Date:2017-11-26 12/10/2017 RANDI B Primary RANDI B [place] [id number] W Insurance:CARESOURCE FAIRCHILDDOB: [address] [id number] [place] [address]Mei: Number: Repository [id number] (HP) Date:4824-57-87DF [address] [address]OE: 12/10/2017 Secondary NOT GIVENUNK [place] Insurance:SELF PAY [facility] Number: Effective Repository Date:2017-12-10 11/26/2017 RANDI B Primary RANDI B [place] [id number] W Insurance:CARESOURCE FAIRCHILDDOB: [address] [id number] [place] [address]Bwj: Number: Repository [id number] (HP) Date:4822-35-49FD [address] [address]BM: 11/26/2017 Secondary NOT GIVENUNK [place] Insurance:SELF PAY [facility] Number: Effective Repository Date:2017-11-26 11/23/2017 RANDI B Primary RANDI B [place] [id number] W Insurance:CARESOURCE FAIRCHILDDOB: [address] [id number] [place] [address]Gkm: Number: Repository [id number] (HP) Date:6779-54-22JH [address] [address]FS: 11/23/2017 Secondary NOT GIVENUNK [place] Insurance:SELF PAY [facility] Number: Effective Repository Date:2017-11-23 10/12/2017 RANDI B Primary RANDI B [place] [id number] W Insurance:CARESOURCE FAIRCHILDDOB: Community [address] [place] [address] [id number] [place] [address]Pbe: Number: Repository [id number] (HP) Date:0191-14-70KZ [address] [address]FK: 10/12/2017 Secondary NOT GIVENUNK [place] Insurance:SELF PAY [facility] Number: Effective Repository Date:2017-10-12 10/09/2017 RANDI B Primary RANDI B Star [id number] W Insurance:CARESOURCE FAIRCHILDDOB: [address] [id number] [place] [address]Pqo: Number: Repository [id number] (HP) Date:[id number] [address] [address]PM: 10/09/2017 Secondary NOT GIVENUNK [place] Insurance:SELF PAY [facility] Number: Effective Repository Date:2017-10-09 10/02/2017 RANDI B Primary RANDI B [place] [id number] W Insurance:CARESOURCE FAIRCHILDDOB: [address] [id number] [place] [address]Zgs: Number: Repository [id number] (HP) Date:[id number] [address] [address]GZ: 10/02/2017 Secondary NOT GIVENUNK [place] Insurance:SELF PAY [facility] Number: Effective Repository Date:2017-09-22 09/18/2017 Randi Primary Randi Star [id number] W Insurance:ALMA RizzoB: [address] [id number] [address]Quv: Number: Repository [id number] (HP) Date:[id number] [address] [place] [id number]: 09/18/2017 Secondary NOT GIVENUNK Star Insurance:SELF PAY [facility] Number: Effective Repository Date:2017-09-18
== END ==
LOC: LAB 07:58
PROVIDERS: Family Provider Family Medicine; PCP Family Medicine; Referring Provider Family Medicine; Visit Provider Family Medicine
DX: I10 Essential (primary) hypertension (principal); D64.9 Anemia, unspecified
CPT/HCPCS: 36415; 82607; 82728; 82746; 83550

== ENCOUNTER → 2018-06-02 16:02 | Outpatient (CLI) | payer OTHER, SELFPAY ==
[2018-06-02 18:11] LABS: ALB/GLOB Ratio 1.2 RATIO (0.9-2.4); AST(SGOT) 18 U/L (15-37); Alanine Aminotransfer ALT/SGPT 37 U/L (16-61); Albumin, Serum 4.1 g/dL (3.2-5.0); Alkaline Phosphatase 106 U/L (45-117); Anion Gap 10 (5-15); BUN 18 mg/dL (7-18); BUN/Creat Ratio 15.1 RATIO (10-20); Calcium,Total 9.3 mg/dL (8.5-10.1); Chloride 106 mmol/L (98-107); Cholesterol 142 mg/dL (200); Creatinine, Serum 1.19 mg/dL (0.70-1.30); EST Glomerular Filtration Rate 67 mL/min (>60); Est Glom Filt Rate - Afr Amer 81 mL/min (>60); Globulin 3.4 g/dL (2.2-4.2); Glucose 83 mg/dL (74-106); High Density Lipoprotein 43 mg/dL; Potassium 4.1 mmol/L (3.5-5.1); Protein, Total 7.5 g/dL (6.4-8.2); Sodium Level 144 mmol/L (136-145); Triglycerides 147 mg/dL; Uric Acid 8.9 mg/dL (3.5-7.2); Very Low Density Lipoprotein 29 mg/dL (5-40)
[2018-06-02 20:06] LABS: Absolute Lymphocyte Count 2.16 X10^3/ul (0.83-4.51); Absolute Neutrophil Count 6.9 X10^3/uL (2.0-7.7); Basophil# 0.08 X10^3/uL; Basophil% 0.8 % (0-1); Eosinophil# 0.19 X10^3/uL; Eosinophils% 1.9 % (0-5); Hematocrit 42.3 % (40-54); Hemoglobin 13.7 g/dl (13.0-16.5); Lymphocyte # 2.16 X10^3/ul (4.0); Lymphocyte % 21.6 % (19-41); Mean Corp Hgb Conc 32.4 g/gl (32-36); Mean Corpuscular Hgb 29.6 pg (27.0-32.0); Mean Corpuscular Volume 91.4 fL (80-94); Mean Platelet Vol. 11.6 fl (6.2-12.0); Monocyte# 0.66 X10^3/uL; Monocyte% 6.6 % (0-10); Neutrophil # 6.85 X10^3/uL (2.7-7.7); Neutrophil % 68.4 % (47-70); Platelet Count 184 K/mm3 (150-450); RBC Distribution Width CV 14.2 % (11.6-14.6); RBC Distribution Width SD 46.8 fl (35.1-43.9); Red Blood Count 4.63 M/mm3 (4.6-6.2)
[2018-06-02 20:09] LABS: POSITIVE COUNT NO; POSITIVE DIFFERENTIAL NO; POSITIVE MORPHOLOGY NO
== END ==
PROVIDERS: Family Provider Family Medicine; PCP Family Medicine; Visit Provider Family Medicine
DX: I10 Essential (primary) hypertension (principal); E78.5 Hyperlipidemia, unspecified; D64.9 Anemia, unspecified; M10.9 Gout, unspecified
CPT/HCPCS: 36415; 80053; 80061; 84550; 85025

== ENCOUNTER → 2018-09-22 | Outpatient (CLI) | payer OTHER, SELFPAY ==
[2018-08-18 09:57] VITALS: BMI 43.7
--- NOTE | 2018-09-22 11:07 | RAD_ITS ---
STUDY: X-RAY - LEFT ANKLE REASON FOR EXAM: Male, 58 years old. Pain TECHNIQUE: 3 view(s) of the ankle. COMPARISON: None. FINDINGS: Normal visualized distal tibia and fibula. Normal medial and lateral malleoli. Mild degenerative changes at the tibiotalar articulation and ankle mortise. Normal visualized talus and calcaneus. Plantar calcaneal spurring. The visualized subtalar, talonavicular, calcaneocuboid and tarsal articulations are normal. The soft tissue structures are unremarkable. RAD/Ankle min 3 Views IMPRESSION: Degenerative changes x-ray examination of the ankle. Electronically Signed: Pranay Mcgraw DO at 23:56 EDT Tel [phone], Service support ,
--- NOTE | 2018-09-22 11:07 | RAD_ITS ---
STUDY: X-RAY - RIGHT ANKLE REASON FOR EXAM: Male, 58 years old. Intermittent bilateral ankle pain for years. History of gout. TECHNIQUE: 3 view(s) of the ankle. COMPARISON: None. FINDINGS: Alignment is normal. No fracture or dislocation. Osteophyte medial malleolus with tibiotalar joint space narrowing. Distal fibula is normal. Normal visualized talus and calcaneus. The visualized subtalar, talonavicular, calcaneocuboid and tarsal articulations are normal. Mild soft tissue swelling adjacent to the medial malleolus. RAD/Ankle min 3 Views IMPRESSION: Degenerative changes medial ankle. No fracture identified. No erosions. Electronically Signed: Afshin Davenport MD at 5:50 EDT , Service support ,
[2018-09-22 12:22] LABS: AST(SGOT) 21 U/L (15-37); Alanine Aminotransfer ALT/SGPT 29 U/L (16-61); Albumin, Serum 3.8 g/dL (3.2-5.0); Alkaline Phosphatase 109 U/L (45-117); Anion Gap 4 (5-15); BUN 20 mg/dL (7-18); BUN/Creat Ratio 18.5 RATIO (10-20); Calcium,Total 8.7 mg/dL (8.5-10.1); Chloride 110 mmol/L (98-107); Cholesterol 134 mg/dL (200); Creatinine, Serum 1.08 mg/dL (0.70-1.30); EST Glomerular Filtration Rate 75 mL/min (>60); Est Glom Filt Rate - Afr Amer 91 mL/min (>60); Globulin 3.9 g/dL (2.2-4.2); Glucose 98 mg/dL (74-106); High Density Lipoprotein 42 mg/dL; Potassium 4.5 mmol/L (3.5-5.1); Protein, Total 7.7 g/dL (6.4-8.2); Sodium Level 140 mmol/L (136-145); Triglycerides 115 mg/dL; Uric Acid 9.2 mg/dL (3.5-7.2); Very Low Density Lipoprotein 23 mg/dL (5-40)
[2018-09-22 12:25] LABS: Absolute Lymphocyte Count 1.62 X10^3/ul (0.83-4.51); Absolute Neutrophil Count 6.5 X10^3/uL (2.0-7.7); Basophil# 0.13 X10^3/uL; Basophil% 1.4 % (0-1); Eosinophil# 0.23 X10^3/uL; Eosinophils% 2.5 % (0-5); Hematocrit 40.1 % (40-54); Hemoglobin 13.2 g/dl (13.0-16.5); Lymphocyte # 1.62 X10^3/ul (4.0); Lymphocyte % 17.3 % (19-41); Mean Corp Hgb Conc 32.9 g/gl (32-36); Mean Corpuscular Hgb 28.6 pg (27.0-32.0); Mean Platelet Vol. 11.5 fl (6.2-12.0); Monocyte# 0.87 X10^3/uL; Monocyte% 9.3 % (0-10); Neutrophil # 6.48 X10^3/uL (2.7-7.7); Neutrophil % 69.2 % (47-70); Platelet Count 212 K/mm3 (150-450); RBC Distribution Width CV 13.7 % (11.6-14.6); RBC Distribution Width SD 42.6 fl (35.1-43.9); Red Blood Count 4.61 M/mm3 (4.6-6.2); White Blood Count 9.4 K/mm3 (4.4-11.0)
[2018-09-22 12:57] LABS: POSITIVE COUNT NO; POSITIVE DIFFERENTIAL NO; POSITIVE MORPHOLOGY NO
== END | disposition home or self-care (01) ==
LOC: MTLAB 11:05
PROVIDERS: Family Provider Family Medicine; PCP Family Medicine; Referring Provider Family Medicine; Visit Provider Family Medicine
DX: M10.9 Gout, unspecified (principal); I10 Essential (primary) hypertension; D64.9 Anemia, unspecified; E78.5 Hyperlipidemia, unspecified; M25.571 Pain in right ankle and joints of right foot; M25.572 Pain in left ankle and joints of left foot
CPT/HCPCS: 36415; 73610; 80053; 80061; 84550; 85025

== ENCOUNTER → 2019-03-26 | Outpatient (CLI) | payer OTHER, SELFPAY ==
[2019-03-25 15:04] VITALS: BMI 46.6
[2019-03-26 09:22] LABS: Absolute Lymphocyte Count 1.24 X10^3/uL (0.83-4.51); Absolute Neutrophil Count 5.4 X10^3/uL (2.0-7.7); Basophil% 1.3 % (0-1); Eosinophil# 0.18 X10^3/uL; Eosinophils% 2.4 % (0-5); Hematocrit 40.5 % (40-54); Lymphocyte # 1.24 X10^3/ul (4.0); Lymphocyte % 16.4 % (19-41); Mean Corp Hgb Conc 32.1 g/dL (32-36); Mean Corpuscular Hgb 29.7 pg (27.0-32.0); Mean Corpuscular Volume 92.5 fL (80-94); Mean Platelet Vol. 11.8 fl (6.2-12.0); Monocyte# 0.55 X10^3/uL; Monocyte% 7.3 % (0-10); NRBC Flagged by Analyzer 0 % (0-5); Neutrophil # 5.41 X10^3/uL (2.7-7.7); Neutrophil % 71.8 % (47-70); Platelet Count 167 K/mm3 (150-450); RBC Distribution Width CV 13.2 % (11.6-14.6); RBC Distribution Width SD 44.5 fl (35.1-43.9); Red Blood Count 4.38 M/mm3 (4.6-6.2); White Blood Count 7.5 K/mm3 (4.4-11.0)
[2019-03-26 10:00] LABS: ALB/GLOB Ratio 1.1 RATIO (0.9-2.4); AST(SGOT) 20 U/L (15-37); Alanine Aminotransfer ALT/SGPT 29 U/L (16-61); Albumin, Serum 3.6 g/dL (3.2-5.0); Alkaline Phosphatase 101 U/L (45-117); Anion Gap 4 (5-15); BUN 15 mg/dL (7-18); BUN/Creat Ratio 13.6 RATIO (10-20); Calcium,Total 8.8 mg/dL (8.5-10.1); Chloride 110 mmol/L (98-107); Cholesterol 149 mg/dL (200); EST Glomerular Filtration Rate 73 mL/min (>60); Est Glom Filt Rate - Afr Amer 88 mL/min (>60); Globulin 3.4 g/dL (2.2-4.2); Glucose 107 mg/dL (74-106); High Density Lipoprotein 41 mg/dL; Potassium 4.5 mmol/L (3.5-5.1); Sodium Level 142 mmol/L (136-145); Triglycerides 151 mg/dL; Uric Acid 8.1 mg/dL (3.5-7.2); Very Low Density Lipoprotein 30 mg/dL (5-40)
[2019-03-29 10:46] LABS: Hemoglobin A1c 5.7 % (4.2-6.3)
== END | disposition home or self-care (01) ==
LOC: LAB 08:19
PROVIDERS: Family Provider Family Medicine; PCP Family Medicine; Referring Provider Family Medicine; Visit Provider Family Medicine
DX: E66.01 Morbid (severe) obesity due to excess calories (principal); I10 Essential (primary) hypertension; M10.9 Gout, unspecified; E78.5 Hyperlipidemia, unspecified
CPT/HCPCS: 36415; 80053; 80061; 83036; 84550; 85025

== ENCOUNTER → 2019-07-23 | Outpatient (CLI) | payer OTHER, SELFPAY ==
[2019-03-25 15:04] VITALS: BMI 46.6
[2019-07-23 09:27] LABS: Absolute Lymphocyte Count 1.33 X10^3/uL (0.83-4.51); Absolute Neutrophil Count 6.4 X10^3/uL (2.0-7.7); Basophil# 0.09 X10^3/uL; Eosinophil# 0.13 X10^3/uL; Eosinophils% 1.5 % (0-5); Hematocrit 42.6 % (40-54); Hemoglobin 13.9 g/dL (13.0-16.5); Lymphocyte # 1.33 X10^3/ul (4.0); Lymphocyte % 15.3 % (19-41); Mean Corp Hgb Conc 32.6 g/dL (32-36); Mean Corpuscular Hgb 29.6 pg (27.0-32.0); Mean Corpuscular Volume 90.6 fL (80-94); Mean Platelet Vol. 11.6 fl (6.2-12.0); Monocyte# 0.72 X10^3/uL; Monocyte% 8.3 % (0-10); NRBC Flagged by Analyzer 0 % (0-5); Neutrophil # 6.38 X10^3/uL (2.7-7.7); Neutrophil % 73.4 % (47-70); Platelet Count 190 K/mm3 (150-450); RBC Distribution Width CV 13.3 % (11.6-14.6); RBC Distribution Width SD 43.8 fl (35.1-43.9); White Blood Count 8.7 K/mm3 (4.4-11.0)
[2019-07-23 09:56] LABS: Hemoglobin A1c 5.5 % (4.2-6.3)
[2019-07-23 10:03] LABS: AST(SGOT) 20 U/L (15-37); Alanine Aminotransfer ALT/SGPT 34 U/L (16-61); Albumin, Serum 3.7 g/dL (3.2-5.0); Alkaline Phosphatase 96 U/L (45-117); Anion Gap 5 (5-15); BUN 23 mg/dL (7-18); BUN/Creat Ratio 18.9 RATIO (10-20); Calcium,Total 9.2 mg/dL (8.5-10.1); Chloride 109 mmol/L (98-107); Cholesterol 136 mg/dL (200); Creatinine, Serum 1.22 mg/dL (0.70-1.30); EST Glomerular Filtration Rate 65 mL/min (>60); Est Glom Filt Rate - Afr Amer 78 mL/min (>60); Globulin 3.6 g/dL (2.2-4.2); Glucose 108 mg/dL (74-106); High Density Lipoprotein 38 mg/dL; Potassium 4.3 mmol/L (3.5-5.1); Protein, Total 7.3 g/dL (6.4-8.2); Sodium Level 141 mmol/L (136-145); Triglycerides 166 mg/dL; Uric Acid 9.6 mg/dL (3.5-7.2); Very Low Density Lipoprotein 33 mg/dL (5-40)
== END | disposition home or self-care (01) ==
LOC: LAB 08:37
PROVIDERS: PCP Family Medicine; Referring Provider Family Medicine; Visit Provider Family Medicine
DX: I10 Essential (primary) hypertension (principal); E78.5 Hyperlipidemia, unspecified; M10.9 Gout, unspecified; R73.02 Impaired glucose tolerance (oral)
CPT/HCPCS: 36415; 80053; 80061; 83036; 84550; 85025

== ENCOUNTER → 2020-03-10 | Outpatient (CLI) ==
[2020-03-10 08:25] LABS: Absolute Lymphocyte Count 1.22 X10^3/uL (0.83-4.51); Absolute Neutrophil Count 5.8 X10^3/uL (2.0-7.7); Basophil% 1.3 % (0-1); Eosinophil# 0.17 X10^3/uL; Eosinophils% 2.2 % (0-5); Hematocrit 41.1 % (40-54); Hemoglobin 13.3 g/dL (13.0-16.5); Lymphocyte # 1.22 X10^3/ul (4.0); Lymphocyte % 15.6 % (19-41); Mean Corp Hgb Conc 32.4 g/dL (32-36); Mean Corpuscular Hgb 29.4 pg (27.0-32.0); Mean Corpuscular Volume 90.7 fL (80-94); Mean Platelet Vol. 11.2 fl (6.2-12.0); Monocyte# 0.57 X10^3/uL; Monocyte% 7.3 % (0-10); NRBC Flagged by Analyzer 0 % (0-5); Neutrophil # 5.75 X10^3/uL (2.7-7.7); Neutrophil % 73.2 % (47-70); Platelet Count 171 K/mm3 (150-450); RBC Distribution Width CV 13.1 % (11.6-14.6); RBC Distribution Width SD 43.4 fl (35.1-43.9); Red Blood Count 4.53 M/mm3 (4.6-6.2); White Blood Count 7.8 K/mm3 (4.4-11.0)
[2020-03-10 08:56] LABS: ALB/GLOB Ratio 1.1 RATIO (0.9-2.4); AST(SGOT) 21 U/L (15-37); Alanine Aminotransfer ALT/SGPT 34 U/L (16-61); Albumin, Serum 3.8 g/dL (3.2-5.0); Alkaline Phosphatase 95 U/L (45-117); Anion Gap 4 (5-15); BUN 18 mg/dL (7-18); BUN/Creat Ratio 16.1 RATIO (10-20); Calcium,Total 8.9 mg/dL (8.5-10.1); Chloride 108 mmol/L (98-107); Cholesterol 131 mg/dL (200); Creatinine, Serum 1.12 mg/dL (0.70-1.30); EST Glomerular Filtration Rate 71 mL/min (>60); Est Glom Filt Rate - Afr Amer 86 mL/min (>60); Globulin 3.4 g/dL (2.2-4.2); Glucose 102 mg/dL (74-106); High Density Lipoprotein 43 mg/dL; Potassium 4.2 mmol/L (3.5-5.1); Protein, Total 7.2 g/dL (6.4-8.2); Sodium Level 141 mmol/L (136-145); Triglycerides 131 mg/dL; Uric Acid 5.2 mg/dL (3.5-7.2); Very Low Density Lipoprotein 26 mg/dL (5-40)
[2020-03-10 12:11] LABS: Hemoglobin A1c 5.3 % (3.8-5.6)
== END | disposition home or self-care (01) ==
PROVIDERS: Family Medicine
DX: E78.5 Hyperlipidemia, unspecified (principal); M10.9 Gout, unspecified; I10 Essential (primary) hypertension; R73.09 Other abnormal glucose
CPT/HCPCS: 36415; 80053; 80061; 83036; 84550; 85025

== ENCOUNTER → 2020-09-08 07:28 | Outpatient (CLI) | payer OTHER, SELFPAY ==
[2020-01-06 09:17] VITALS: BMI 43.8
[2020-09-08 07:34] LABS: Bacteria 0 SEEN /hpf (None Seen); Mucous, Urine 0 SEEN /hpf (<or=2+); Red Blood Cells-Urine 0 SEEN /hpf (0-5); Squamous Epithelial Cells - UA 0 SEEN /hpf (0-5); White Blood Cells 0 SEEN /hpf (0-5)
[2020-09-08 08:06] LABS: Hemoglobin A1c 5.3 % (3.8-5.6)
[2020-09-08 08:13] LABS: ALB/GLOB Ratio 1.1 RATIO (0.9-2.4); AST(SGOT) 21 U/L (15-37); Alanine Aminotransfer ALT/SGPT 37 U/L (16-61); Albumin, Serum 3.9 g/dL (3.2-5.0); Alkaline Phosphatase 101 U/L (45-117); Anion Gap 4 (5-15); BUN 16 mg/dL (7-18); BUN/Creat Ratio 14.2 RATIO (10-20); Chloride 105 mmol/L (98-107); Cholesterol 139 mg/dL (200); Creatinine, Serum 1.13 mg/dL (0.70-1.30); EST Glomerular Filtration Rate 71 mL/min (>60); Est Glom Filt Rate - Afr Amer 85 mL/min (>60); Globulin 3.7 g/dL (2.2-4.2); Glucose 120 mg/dL (74-106); High Density Lipoprotein 43 mg/dL; Potassium 4.1 mmol/L (3.5-5.1); Protein, Total 7.6 g/dL (6.4-8.2); Sodium Level 140 mmol/L (136-145); Triglycerides 135 mg/dL; Uric Acid 6.3 mg/dL (3.5-7.2); Very Low Density Lipoprotein 27 mg/dL (5-40)
[2020-09-08 08:38] LABS: Color, Urine Yellow (Yellow); Glucose, Dipstick Normal (Normal); Ketone-Dipstick Negative (Negative); Leukocyte Esterase-Dipstick Negative /ul (Negative); Nitrite-Dipstick Negative (Negative); Occult Blood-Urine Negative /ul (Negative); Protein-Dipstick Negative (Negative); Specific Gravity, Urine 1.015 (1.002-1.030); Urine Bilirubin Dipstick Negative (Negative); Urine Clarity Clear (Clear); Urine Urobilinogen Normal (Normal)
== END ==
LOC: LAB 07:29
PROVIDERS: PCP Family Medicine; Referring Provider Family Medicine; Visit Provider Family Medicine
DX: E78.5 Hyperlipidemia, unspecified (principal); M10.9 Gout, unspecified; R73.02 Impaired glucose tolerance (oral)
CPT/HCPCS: 36415; 80053; 80061; 81001; 83036; 84550

== ENCOUNTER → 2020-10-31 12:40 | Outpatient (CLI) | payer OTHER, SELFPAY ==
[2020-10-24 16:24] VITALS: BMI 43.2
--- NOTE | 2020-10-31 12:43 | ECHOCS_ITS ---
Reason For Study: Bradycardia Procedure This was a 2D Doppler, Color Flow transthoracic echocardiogram. Technically difficult study due to patients body habitus. Contrast injection performed. The study was technically difficult. Contrast injection was performed. Exam performed in department. Left Ventricle Based upon the 2D echocardiographic and contrast enhanced images obtained there appears to be grossly normal left ventricular size, wall motion, and systolic function. The estimated ejection fraction is 60 %. Diastolic function is indeterminate. Right Ventricle Based upon the 2D echocardiographic images obtained appears to be grossly normal right ventricular size and systolic function. Atria Normal left atrium. Normal right atrium. No doppler evidence for ASD. Mitral Valve There is no mitral annular calcification. Normal mitral valve. Trivial mitral valve insufficiency. Tricuspid Valve Normal tricuspid valve. Trivial tricuspid valve insufficiency. Right ventricular systolic pressure estimated to be 45 mmHg. Aortic Valve The aortic valve is not well visualized, however, based upon the 2D echocardiographic images obtained there appears to be a stable appearing bioprosthetic aortic valve apparatus. Pulmonic Valve The pulmonic valve is not well visualized. Great Vessels The aortic root is not well visualized. Pericardium/Pleural No pericardial effusion. Medication 22 gauge I.V. with prn adaptor inserted into right arm. Diluted definity 3ml given slow IV push to enhance endocardial definition. MMode/2D Measurements & Calculations LVIDd: 5.3 cm IVSd: 1.1 cm LVOT diam: 2.2 cm LVIDs: 2.7 cm LVPWd: 1.6 cm FS: 49.7 % LVOT area: 3.7 cm2 LA dimension: 4.6 cm LAV(MOD-bp): 59.0 ml LA A4 area: 18.4 cm2 LAV(MOD-bp) Indexed: 22.8 ml/m2 LAV(MOD-sp2): 66.2 ml LAV(MOD-sp4): 47.0 ml RA A4 area: 18.1 cm2 Time Measurements MV dec time: 0.26 sec Doppler Measurements & Calculations MV E max gaurav: 104.4 cm/sec Lat Peak E' Gaurav: 10.8 cm/sec Med Peak E' Gaurav: 7.4 cm/sec MV A max gaurav: 97.8 cm/sec E/E' lat: 9.6 E/E' med: 14.2 MV E/A: 1.1 MV V2 max: 115.6 cm/sec MV P1/2t max gaurav: 112.7 cm/sec Ao V2 max: 239.2 cm/sec MV max P.3 mmHg MV P1/2t: 97.6 msec Ao max P.9 mmHg MV V2 mean: 44.6 cm/sec MV dec slope: 338.0 cm/sec2 Ao V2 mean: 149.9 cm/sec MV mean P.1 mmHg Ao mean P.6 mmHg MV V2 VTI: 42.1 cm MVA(P1/2t): 2.3 cm2 Ao V2 VTI: 51.4 cm MVA(VTI): 2.6 cm2 HUBERT(I,D): 2.1 cm2 HUBERT(V,D): 1.9 cm2 LV V1 max: 122.8 cm/sec SV(LVOT): 110.4 ml PA V2 max: 156.0 cm/sec LV V1 max P.1 mmHg LV V1 mean P.8 mmHg LV V1 mean: 77.2 cm/sec LV V1 VTI: 29.7 cm TR max gaurav: 322.2 cm/sec TR max P.5 mmHg ECHO/Echo Complete W/ Contrast Interpretation Summary The study was technically difficult. Contrast injection was performed. Based upon the 2D echocardiographic and contrast enhanced images obtained there appears to be grossly normal left ventricular size, wall motion, and systolic function. The estimated ejection fraction is 60 %. Trivial mitral valve insufficiency. Trivial tricuspid valve insufficiency. The aortic valve is not well visualized, however, based upon the 2D echocardiog raphic images obtained there appears to be a stable appearing bioprosthetic aortic valve appa ratus. Right ventricular systolic pressure estimated to be 45 mmHg. Diastolic function is indeterminate. Ordering Physician: Ras Meadows Referring Physician: Priyank Azul Performed By: Otf Yee RCS
== END ==
LOC: CVS 12:41
PROVIDERS: PCP Family Medicine; Referring Provider Internal Medicine Cardiovascular Disease; Visit Provider Internal Medicine Cardiovascular Disease
DX: R00.1 Bradycardia, unspecified (principal); I97.89 Other postprocedural complications and disorders of the circulatory system, not elsewhere classified; I48.91 Unspecified atrial fibrillation; E78.5 Hyperlipidemia, unspecified; I10 Essential (primary) hypertension; Z95.3 Presence of xenogenic heart valve; Z95.828 Presence of other vascular implants and grafts
CPT/HCPCS: 93225; 93226; 93306; Q9957; C8929; J3490

== ENCOUNTER 2021-06-01 07:19 | Outpatient (CLI) | payer OTHER, SELFPAY ==
[2021-06-01 07:52] LABS: Absolute Lymphocyte Count 1.87 X10^3/uL (0.83-4.51); Absolute Neutrophil Count 7.2 X10^3/uL (2.0-7.7); Basophil# 0.11 X10^3/uL; Basophil% 1.1 % (0-1); Eosinophil# 0.21 X10^3/uL; Eosinophils% 2.1 % (0-5); Hematocrit 43.5 % (40-54); Hemoglobin 14.3 g/dL (13.0-16.5); Lymphocyte # 1.87 X10^3/ul (0.83-4.51); Lymphocyte % 18.6 % (19-41); Mean Corp Hgb Conc 32.9 g/dL (32-36); Mean Corpuscular Hgb 29.7 pg (27.0-32.0); Mean Corpuscular Volume 90.2 fL (80-94); Mean Platelet Vol. 10.8 fl (6.2-12.0); Monocyte# 0.67 X10^3/uL; Monocyte% 6.6 % (0-10); NRBC Flagged by Analyzer 0 % (0-5); Neutrophil # 7.17 X10^3/uL (2.7-7.7); Neutrophil % 71.1 % (47-70); Platelet Count 248 K/mm3 (150-450); RBC Distribution Width CV 12.8 % (11.6-14.6); Red Blood Count 4.82 M/mm3 (4.6-6.2); White Blood Count 10.1 K/mm3 (4.4-11.0)
[2021-06-01 08:23] LABS: ALB/GLOB Ratio 0.8 RATIO (0.9-2.4); AST(SGOT) 23 U/L (15-37); Alanine Aminotransfer ALT/SGPT 32 U/L (16-61); Albumin, Serum 3.5 g/dL (3.2-5.0); Alkaline Phosphatase 115 U/L (45-117); Anion Gap 5 (5-15); BUN 22 mg/dL (7-18); BUN/Creat Ratio 19.5 RATIO (10-20); Calcium,Total 9.1 mg/dL (8.5-10.1); Chloride 108 mmol/L (98-107); Cholesterol 124 mg/dL (200); Creatinine, Serum 1.13 mg/dL (0.70-1.30); EST Glomerular Filtration Rate 70 mL/min (>60); Est Glom Filt Rate - Afr Amer 85 mL/min (>60); Globulin 4.3 g/dL (2.2-4.2); Glucose 105 mg/dL (74-106); High Density Lipoprotein 33 mg/dL; Potassium 4.7 mmol/L (3.5-5.1); Protein, Total 7.8 g/dL (6.4-8.2); Sodium Level 143 mmol/L (136-145); Triglycerides 162 mg/dL; Uric Acid 8.3 mg/dL (3.5-7.2); Very Low Density Lipoprotein 32 mg/dL (5-40)
[2021-06-01 08:39] LABS: Hemoglobin A1c 5.3 % (3.8-5.6)
== END 2021-06-01 23:59 | disposition short-term general hospital (02) ==
LOC: LAB 07:22
PROVIDERS: PCP Family Medicine; Referring Provider Family Medicine; Visit Provider Family Medicine
DX: I10 Essential (primary) hypertension (principal); R73.02 Impaired glucose tolerance (oral); M10.9 Gout, unspecified; E78.5 Hyperlipidemia, unspecified
CPT/HCPCS: 36415; 80053; 80061; 83036; 84550; 85025

== ENCOUNTER → 2021-10-15 | Outpatient (CLI) | payer OTHER, SELFPAY ==
[2021-10-15 18:24] LABS: PSA,Total - Annual Screen 0.45 ng/mL (0.00-4.00)
== END | disposition home or self-care (01) ==
LOC: MFPLAB 14:32
PROVIDERS: PCP Family Medicine; Referring Provider Family Medicine; Visit Provider Family Medicine
DX: Z12.5 Encounter for screening for malignant neoplasm of prostate (principal)
CPT/HCPCS: 36415; 84153; G0103

== ENCOUNTER → 2021-11-04 | Outpatient (CLI) | payer OTHER, SELFPAY ==
--- NOTE | 2021-11-04 15:42 | CT_ITS ---
STUDY: LOW DOSE CT LUNG CANCER SCREENING REASON FOR EXAM: Male, 61 years old. HX OF TOBACCO USE. Former smoker. Patient smoked 3 packs per day for 30 years. RADIATION DOSAGE (If Supplied By Facility): CTDIvol = ( 4.02 ) mGy, DLP = ( 145.47 ) mGycm TECHNIQUE: No contrast was administered. Low dose technique was utilized (average mAS-38 and kVp 120). 1.25 mm axial source images with a slice interval of 1.25-mm were reconstructed in lung windows. 2.5 mm axial source images with a slice interval of 2.5-mm were reconstructed in lung windows. 5.0 mm axial source images with a slice interval of 5.0-mm were reconstructed in soft tissue windows. COMPARISON: Comparison is made with prior study 12/30/2017. NODULES: No suspicious nodules are seen. Emphysema: Mild degree of emphysematous changes. Endobronchial lesion: Unremarkable Aorta: Atherosclerotic plaque formation of the aortic arch. CORONARY ARTERIES: Coronary artery calcification is seen. Heart: Prior midline sternotomy and aortic valve replacement. Pulmonary artery: Unremarkable Mediastinal nodes: Small mediastinal lymph nodes. Other chest and abdominal findings: CT/Low Dose CT Lung Screening IMPRESSION: Lung-RADS category 2 - Continue annual screening with LDCT in 12 months. IMPORTANT NOTES FOR USE: ACR Lung-RADS Version 1.1 Assessment Categories Release Date: 2018 Category: Coded 0-4 bases on nodule(s) with highest degree of suspicion. Negative screen is defined as categories 1 and 2; a positive screen is defined as categories 3 and 4. Category 3 and 4A nodules that are unchanged on interval CT should be coded as category 2, and individuals returned to screening in 12 months. Category 4X: Category 3 or 4 nodules with additional imaging findings that increase the suspicion of lung cancer, such as spiculation, GGN that doubles in size in 1 year, enlarged lymph notes, etc. Category Modifiers: S (significant finding unrelated to lung cancer) Electronically Signed: Sterling Hart MD at 8:43 EDT ,
== END | disposition home or self-care (01) ==
PROVIDERS: PCP Family Medicine; Visit Provider Family Medicine
DX: Z87.891 Personal history of nicotine dependence (principal)
CPT/HCPCS: 71271

== ENCOUNTER → 2022-01-11 | Outpatient (CLI) | payer OTHER, MEDICAID, SELFPAY ==
[2022-01-11 09:35] LABS: Absolute Lymphocyte Count 1.11 X10^3/uL (0.83-4.51); Absolute Neutrophil Count 5.5 X10^3/uL (2.0-7.7); Basophil% 1.3 % (0-1); Eosinophil# 0.14 X10^3/uL; Eosinophils% 1.9 % (0-5); Hematocrit 44.5 % (40-54); Hemoglobin 15.2 g/dL (13.0-16.5); Lymphocyte # 1.11 X10^3/ul (0.83-4.51); Lymphocyte % 14.9 % (19-41); Mean Corp Hgb Conc 34.2 g/dL (32-36); Mean Corpuscular Hgb 30.7 pg (27.0-32.0); Mean Corpuscular Volume 89.9 fL (80-94); Mean Platelet Vol. 11.9 fl (6.2-12.0); Monocyte# 0.58 X10^3/uL; Monocyte% 7.8 % (0-10); NRBC Flagged by Analyzer 0 % (0-5); Neutrophil # 5.51 X10^3/uL (2.7-7.7); Neutrophil % 73.7 % (47-70); Platelet Count 180 K/mm3 (150-450); RBC Distribution Width CV 12.9 % (11.6-14.6); RBC Distribution Width SD 42.3 fl (35.1-43.9); Red Blood Count 4.95 M/mm3 (4.6-6.2); White Blood Count 7.5 K/mm3 (4.4-11.0)
[2022-01-11 09:37] LABS: Hemoglobin A1c 5.4 % (3.8-5.6)
[2022-01-11 09:46] LABS: ALB/GLOB Ratio 1.2 RATIO (0.9-2.4); AST(SGOT) 20 U/L (15-37); Alanine Aminotransfer ALT/SGPT 33 U/L (16-61); Albumin, Serum 3.9 g/dL (3.2-5.0); Alkaline Phosphatase 81 U/L (45-117); Anion Gap 6 (5-15); BUN 23 mg/dL (7-18); BUN/Creat Ratio 19.5 RATIO (10-20); Calcium,Total 8.5 mg/dL (8.5-10.1); Chloride 106 mmol/L (98-107); Cholesterol 153 mg/dL (200); Creatinine, Serum 1.18 mg/dL (0.70-1.30); EST Glomerular Filtration Rate 67 mL/min (>60); Est Glom Filt Rate - Afr Amer 81 mL/min (>60); Globulin 3.2 g/dL (2.2-4.2); Glucose 107 mg/dL (74-106); High Density Lipoprotein 37 mg/dL; Potassium 4.1 mmol/L (3.5-5.1); Protein, Total 7.1 g/dL (6.4-8.2); Sodium Level 139 mmol/L (136-145); Thyroid Stim Hormone (TSH) 1.54 uIU/mL (0.358-3.74); Triglycerides 137 mg/dL; Uric Acid 5.3 mg/dL (3.5-7.2); Very Low Density Lipoprotein 27 mg/dL (5-40)
== END | disposition home or self-care (01) ==
LOC: LAB 08:49
PROVIDERS: PCP Family Medicine; Referring Provider Family Medicine; Visit Provider Family Medicine
DX: I10 Essential (primary) hypertension (principal); R73.02 Impaired glucose tolerance (oral); M10.9 Gout, unspecified
CPT/HCPCS: 36415; 80053; 80061; 83036; 84443; 84550; 85025

== ENCOUNTER → 2022-03-04 | Outpatient (CLI) | payer OTHER, MEDICAID, SELFPAY ==
--- NOTE | 2022-03-04 15:02 | RAD_ITS ---
STUDY: X-RAY - RIGHT KNEE REASON FOR EXAM: Male, 61 years old. ARTHRITIS TECHNIQUE: 4 view(s) of the knee. COMPARISON: None. FINDINGS: Moderate joint space narrowing medial and patellofemoral compartments. Moderate osteophytic spurring upper and lower poles of patella, mild osteophytic spurring particularly medial lateral compartments. 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 Dystrophic calcification proximal anterior patellar tendon. RAD/Knee 3 Views IMPRESSION: Osteoarthritis as above. Maximino-Stieda syndrome. Calcifications of the proximal patellar tendon. Electronically Signed: Kashif Zamudio MD, DARRICK at 17:22 EDT ,
--- NOTE | 2022-03-04 15:05 | RAD_ITS ---
STUDY: X-RAY - LEFT KNEE REASON FOR EXAM: Male, 61 years old. ARTHRITIS TECHNIQUE: 4 view(s) of the knee. COMPARISON: None. FINDINGS: Moderate squaring medial and patellofemoral compartments. Mild osteophytic spurring peripherally of all 3 compartments. Mild joint space narrowing lateral compartment. Lucency of the inferior articular surface of medial femoral condyle 1.1 cm transverse likely representing osteochondritis desiccated. RAD/Knee 3 Views IMPRESSION: Tricompartmental osteoarthritis. Lucency inferior articular surface medial femoral condyle suspicious for osteochondritis dissecans. Electronically Signed: Kashif Zamudio MD, DARRICK at 17:20 EDT ,
== END | disposition home or self-care (01) ==
LOC: MTRAD 15:01
PROVIDERS: PCP Family Medicine; Referring Provider Family Medicine; Visit Provider Family Medicine
DX: M17.0 Bilateral primary osteoarthritis of knee (principal)
CPT/HCPCS: 73562

== ENCOUNTER → 2022-07-21 | Outpatient (CLI) | payer MEDICAID, SELFPAY ==
[2022-07-21 12:09] LABS: Absolute Lymphocyte Count 1.12 X10^3/uL (0.83-4.51); Absolute Neutrophil Count 5.8 X10^3/uL (2.0-7.7); Basophil% 1.3 % (0-1); Eosinophil# 0.07 X10^3/uL; Eosinophils% 0.9 % (0-5); Hematocrit 42.8 % (40-54); Hemoglobin 14.2 g/dL (13.0-16.5); Lymphocyte # 1.12 X10^3/ul (0.83-4.51); Lymphocyte % 14.7 % (19-41); Mean Corp Hgb Conc 33.2 g/dL (32-36); Mean Corpuscular Hgb 29.8 pg (27.0-32.0); Mean Corpuscular Volume 89.9 fL (80-94); Mean Platelet Vol. 11.8 fl (6.2-12.0); Monocyte# 0.51 X10^3/uL; Monocyte% 6.7 % (0-10); NRBC Flagged by Analyzer 0 % (0-5); Neutrophil # 5.79 X10^3/uL (2.7-7.7); Platelet Count 183 K/mm3 (150-450); RBC Distribution Width SD 42.7 fl (35.1-43.9); Red Blood Count 4.76 M/mm3 (4.6-6.2); White Blood Count 7.6 K/mm3 (4.4-11.0)
[2022-07-21 12:25] LABS: AST(SGOT) 19 U/L (15-37); Alanine Aminotransfer ALT/SGPT 22 U/L (16-61); Albumin, Serum 3.7 g/dL (3.2-5.0); Alkaline Phosphatase 106 U/L (45-117); Anion Gap 6 (5-15); BUN 16 mg/dL (7-18); BUN/Creat Ratio 14.2 RATIO (10-20); Calcium,Total 9.3 mg/dL (8.5-10.1); Chloride 106 mmol/L (98-107); Cholesterol 127 mg/dL (200); Creatinine, Serum 1.13 mg/dL (0.70-1.30); EST Glomerular Filtration Rate 70 mL/min (>60); Est Glom Filt Rate - Afr Amer 85 mL/min (>60); Globulin 3.6 g/dL (2.2-4.2); Glucose 114 mg/dL (74-106); High Density Lipoprotein 39 mg/dL; Protein, Total 7.3 g/dL (6.4-8.2); Sodium Level 140 mmol/L (136-145); Triglycerides 96 mg/dL; Uric Acid 5.8 mg/dL (3.5-7.2); Very Low Density Lipoprotein 19 mg/dL (5-40)
[2022-07-21 12:38] LABS: Hemoglobin A1c 5.3 % (3.8-5.6)
== END | disposition home or self-care (01) ==
LOC: MFPLAB 09:30
PROVIDERS: PCP Family Medicine; Visit Provider Family Medicine
DX: I10 Essential (primary) hypertension (principal); R73.02 Impaired glucose tolerance (oral); E78.5 Hyperlipidemia, unspecified; M10.9 Gout, unspecified
CPT/HCPCS: 36415; 80053; 80061; 83036; 84550; 85025

== ENCOUNTER → 2023-01-21 | Outpatient (CLI) | payer MEDICAID, SELFPAY | END | disposition home or self-care (01) | PROVIDERS: PCP Family Medicine; Visit Provider Family Medicine | DX: L72.0 Epidermal cyst (principal) | CPT/HCPCS: 87070; 87077; 87186; 87205 ==

== ENCOUNTER → 2023-01-27 | Outpatient (CLI) | payer MEDICAID, SELFPAY ==
[2023-01-27 14:38] LABS: Absolute Lymphocyte Count 0.99 X10^3/uL (0.83-4.51); Absolute Neutrophil Count 5.3 X10^3/uL (2.0-7.7); Basophil# 0.12 X10^3/uL; Basophil% 1.6 % (0-1); Eosinophils% 2.7 % (0-5); Hemoglobin 13.3 g/dL (13.0-16.5); Lymphocyte # 0.99 X10^3/ul (0.83-4.51); Lymphocyte % 13.5 % (19-41); Mean Corp Hgb Conc 32.4 g/dL (32-36); Mean Corpuscular Hgb 29.5 pg (27.0-32.0); Mean Corpuscular Volume 90.9 fL (80-94); Mean Platelet Vol. 12.2 fl (6.2-12.0); Monocyte# 0.68 X10^3/uL; Monocyte% 9.3 % (0-10); NRBC Flagged by Analyzer 0 % (0-5); Neutrophil # 5.29 X10^3/uL (2.7-7.7); Neutrophil % 72.2 % (47-70); Platelet Count 188 K/mm3 (150-450); RBC Distribution Width CV 12.9 % (11.6-14.6); RBC Distribution Width SD 42.6 fl (35.1-43.9); Red Blood Count 4.51 M/mm3 (4.6-6.2); White Blood Count 7.3 K/mm3 (4.4-11.0)
[2023-01-27 14:57] LABS: ALB/GLOB Ratio 0.9 RATIO (0.9-2.4); AST(SGOT) 18 U/L (15-37); Alanine Aminotransfer ALT/SGPT 23 U/L (16-61); Albumin, Serum 3.3 g/dL (3.2-5.0); Alkaline Phosphatase 116 U/L (45-117); Anion Gap 6 (5-15); BUN 29 mg/dL (7-18); BUN/Creat Ratio 25.7 RATIO (10-20); Calcium,Total 9.2 mg/dL (8.5-10.1); Chloride 112 mmol/L (98-107); Cholesterol 113 mg/dL (200); Creatinine, Serum 1.13 mg/dL (0.70-1.30); EST Glomerular Filtration Rate 70 mL/min (>60); Est Glom Filt Rate - Afr Amer 85 mL/min (>60); Globulin 3.8 g/dL (2.2-4.2); Glucose 99 mg/dL (74-106); High Density Lipoprotein 34 mg/dL; Potassium 4.3 mmol/L (3.5-5.1); Protein, Total 7.1 g/dL (6.4-8.2); Sodium Level 144 mmol/L (136-145); Thyroid Stim Hormone (TSH) 0.51 uIU/mL (0.358-3.74); Triglycerides 106 mg/dL; Very Low Density Lipoprotein 21 mg/dL (5-40)
[2023-01-27 17:03] LABS: Mucous, Urine 0 SEEN /hpf (<or=2+); Squamous Epithelial Cells - UA 0 SEEN /hpf (0-5); White Blood Cells 0 SEEN /hpf (0-5)
[2023-01-27 17:43] LABS: Color, Urine Yellow (Yellow); Glucose, Dipstick Normal (Normal); Ketone-Dipstick Negative (Negative); Leukocyte Esterase-Dipstick Negative /ul (Negative); Nitrite-Dipstick Negative (Negative); Occult Blood-Urine 10 /ul (Negative); Protein-Dipstick Negative (Negative); Urine Bilirubin Dipstick Negative (Negative); Urine Clarity Clear (Clear); Urine Urobilinogen Normal (Normal)
[2023-01-27 17:57] LABS: Bacteria RARE /hpf (None Seen); Red Blood Cells-Urine 0-5 SEEN /hpf (0-5)
== END | disposition home or self-care (01) ==
LOC: MFPLAB 11:26
PROVIDERS: PCP Family Medicine; Visit Provider Family Medicine
DX: I10 Essential (primary) hypertension (principal)
CPT/HCPCS: 36415; 80053; 80061; 81001; 84443; 85025

== ENCOUNTER → 2023-03-04 | Outpatient (CLI) | payer MEDICAID, SELFPAY ==
--- NOTE | 2023-03-04 09:00 | RAD_ITS ---
STUDY: X-RAY - RIGHT HAND REASON FOR EXAM: Male, 62 years old. Pain, evaluate for joint erosion, attention to 2nd distal phalanx. TECHNIQUE: 3 views of the right hand. COMPARISON: None. FINDINGS: Normal radiocarpal articulation. Normal distal radioulnar joint. Normal visualized carpal bones. Normal carpal articulations. Normal carpometacarpal articulation of the thumb. Normal second through fifth carpometacarpal joints. Normal metacarpi. Normal metacarpophalangeal joint of the thumb. There is degenerative arthrosis of the interphalangeal joint of the thumb with articular joint space narrowing and marginal osteophyte formation. Normal proximal and distal phalanges of the thumb. Normal metacarpophalangeal joints of the second through fifth fingers. Normal proximal interphalangeal joints of the second through fifth fingers. There is osseous erosion along the radial margin of the condyle of the second middle phalanx with osteoarthritic joint space narrowing and periarticular soft tissue swelling of the second DIP joint. Intact phalanges of the second through fifth fingers. There is no demonstrated acute fracture. RAD/Hand Min 3 Views IMPRESSION: Degenerative arthrosis of the interphalangeal joint of the thumb. Osseous erosion along the radial margin of the condyle of the second middle phalanx with osteoarthritic joint space narrowing and periarticular soft tissue swelling of the second DIP joint. Electronically Signed: Jose Monahan MD at 11:22 EDT ,
== END | disposition home or self-care (01) ==
LOC: MTRAD 08:30
PROVIDERS: PCP Family Medicine; Referring Provider Family Medicine; Visit Provider Family Medicine
DX: M1A.9XX1 Chronic gout, unspecified, with tophus (tophi) (principal)
CPT/HCPCS: 73130

== ENCOUNTER 2023-04-10 13:55 | Outpatient (CLI) | payer MEDICAID, SELFPAY ==
--- OUTSIDE RECORDS SUMMARY | 2023-04-10 14:39 | XMS RPT_ITS | CCD ---
Author Name Unknown Address [address] [place] [address] Organization [facility] Care Team Providers Care Speech Pathologist Assistant Name Role Phone VIKASH, JARRED F Unavailable Unavailable VIKASH, JARRED F Unavailable Unavailable NO REFERRING Unavailable Unavailable VIKASH, JARRED F Unavailable Unavailable VIKASH, JARRED F Unavailable Unavailable VIKASH, JARRED F Unavailable Unavailable NO REFERRING Unavailable Unavailable VIKASH, JARRED F Unavailable Unavailable VANI RUIZ Unavailable Unavailable VIKASH, JARRED F Unavailable Unavailable VIKASH, JARRED F Unavailable Unavailable VIKASH, JARRED F Unavailable Unavailable VIKASH, JARRED F Unavailable Unavailable KARSON FLORES Attending Unavailable KALPESH GARCIA Primary Care Unavailable LORENA NUNEZ Attending Unavailable KALPESH GARCIA Primary Care Unavailable KALPESH GARCIA Primary Care Unavailable MARY LINDSEY Attending Unavailable Allergies Allergy Classification Reported Allergen(s) Allergy Type Date of Onset Reaction(s) Facility (2 sources) allopurinol; Translations: [ALLOPURINOL] Drug Allergy [facility] Repository (1 source) bacitracin / neomycin / polymyxin b; Translations: [NEOSPORIN (ALEXANDER-SEEMA-P] Drug Allergy [facility] Repository (2 sources) [id number] MYX-PRAMOXINE; Translations: [[id number] YMYX-PRAMOXINE] Propensity to adverse reactions (disorder) [facility] Repository Problems Active Problems Problem Classification Problem Date Documented Date Episodic/Chronic Asthma (1 source) Unspecified asthma, uncomplicated; Translations: [UNSPECIFIED ASTHMA UNCOM] Onset: 01-28-2017 Chronic Cardiac dysrhythmias (2 sources) Cardiac arrhythmia, unspecified; Translations: [Unspecified atrial fibrillation] Onset: 01-14-2017 Chronic Coronary atherosclerosis and other heart disease (1 source) 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; Translations: [ASHD PAIMIUT CA W/O ANGIN] Onset: 01-28-2017 Chronic Disorders of lipid metabolism (1 source) Hyperlipidemia, unspecified; Translations: [HYPERLIPIDEMIA UNSPECIFI] Onset: 01-28-2017 Chronic Esophageal disorders (1 source) Gastro-esophageal reflux disease without esophagitis; Translations: [GERD WITHOUT ESOPHAGITIS] Onset: 01-28-2017 Chronic Essential hypertension (1 source) Essential (primary) hypertension; Translations: [ESSENTIAL PRIMARY HYPERT] Onset: 01-28-2017 Chronic Gout and other crystal arthropathies (1 source) Gout, unspecified; Translations: [GOUT UNSPECIFIED] Onset: 01-28-2017 Chronic Occlusion or stenosis of precerebral arteries (1 source) Occlusion and stenosis of right carotid artery; Translations: [OCCLUSION T STENOSIS R] Onset: 01-14-2017 Chronic Other fractures (2 sources) Multiple fractures of ribs, right side, initial encounter for closed fracture; Translations: [Multiple fractures of ribs, right side, initial encounter for closed fracture] Onset: 10-23-2022 Episodic Other nutritional; endocrine; and metabolic disorders (1 source) Obesity, unspecified; Translations: [OBESITY UNSPECIFIED] Onset: 01-28-2017 Chronic Unclassified (1 source) Body mass index (BMI) 40.0-44.9, adult; Translations: [BODY MASS INDEX BMI 40.0] Onset: 01-28-2017 Chronic Past or Other Problems Problem Classification Problem Date Documented Da te Episodic/Chronic Calculus of urinary tract (4 sources) Calculus of ureter; Translations: [Personal history of urinary calculi] Onset: 01-28-2017 Episodic Gastroduodenal ulcer (1 source) Personal history of peptic ulcer disease; Translations: [PERSONAL HX PEPTIC ULCER] Onset: 01-14-2017 Episodic Other aftercare (2 sources) Other parts counterman (current) drug therapy; Translations: [parts counterman (current) use of aspirin] Onset: 01-28-2017 Episodic Other diseases of kidney and ureters (1 source) Disorder of kidney and ureter, unspecified; Translations: [DISORDER KIDNEY AND URET] Onset: 01-28-2017 Episodic Screening or history of mental health and substance abuse (1 source) Personal history of nicotine dependence; Translations: [PERSONAL HISTORY OF MACY] Onset: 01-28-2017 Episodic Results Test Name Value Interpretation Reference Range Facil ity Encounters Encounter Date Encounter Type Care Provider Facility Start: 10-23-2022 End: 10-23-2022 Emergency department patient visit KALPESH [place] GARCIA [facility] Start: 10-19-2019 Patient encounter procedure LORENA NUNEZ [facility] Start: 10-05-2019 Patient encounter procedure KARSON FLORES [facility] Start: 04-28-2017 Ambulatory VANI RUIZ Facility :[facility] Start: 01-28-2017 End: 01-29-2017 Ambulatory JARRED Alexandrea ALDANAVIKASH Facility:[facility] Start: 01-14-2017 End: 01-15-2017 Ambulatory [place] VIKASH Facility:[facility] Procedures Date Procedure Procedure Detail Performing Clinician Start: 01-28-2017 CYSTO/URETERO W/LITHOTRI JARRED [facility] Start: 01-14-2017 CYSTOSCOPY AND TREATMENT JARRED [facility] Payers Date Payer Category Payer Medicaid [id number] 2017 Unknown [id number] 2015 Unknown [id number] 1960 Unknown [id number] 1960 Unknown [id number] 2.16. [id number] 1961 Unknown [id number] 2.16. [id number] Summary Purpose Family History No Family History Records FoundNo Family History Records FoundNo Family History Records FoundNo Family History Records Found Advance Directives No Advanced Directives Records FoundNo Advanced Directives Records FoundNo Advanced Directives Records FoundNo Advanced Directives Records Found Additional Source Comments (unrecognized sect ion and content) No Status Records FoundNo Status Records FoundNo Status Records FoundNo Status Records Found INFORMATION SOURCE (unrecogn ized section and content) DATE CREATED AUTHOR AUTHOR'S ORGANIZ ATION 11/18/2017 [facility] DATE CREATED AUTHOR AUTHOR'S ORGANIZ ATION 10/19/2019 [facility] DATE CREATED AUTHOR AUTHOR'S ORGANIZ ATION 11/02/2022 [facility] FOR RECORDS PERTAINING TO PATIENTS WHO ARE OR HAVE BEEN ENROLLED IN A CHEMICAL DEPENDENCY/SUBSTANCEABUSE PROGRAM, SOME INFORMATION MAY BE OMITTED. This clinical summary was aggregated from multiple sources. Caution should be exercised in using it in the provision of clinical care. This summary normalizes information from multiple sources, and as a consequence, information in this document may materially change the coding, format and clinical context of patient data. In addition, data may be omitted in some cases. CLINICAL DECISIONS SHOULD BE BASED ON THE PRIMARY CLINICAL RECORDS. [facility] [facility]. provides no warranty or guarantee of the accuracy or completeness of information in this document.
== END 2023-04-10 23:59 | disposition home or self-care (01) ==
LOC: MFPLAB 13:56
PROVIDERS: PCP Family Medicine; Visit Provider Family Medicine
DX: Z12.5 Encounter for screening for malignant neoplasm of prostate (principal)
CPT/HCPCS: 84153; 36415; G0103